=== PATIENT | female | born 1960 | race Asian ===

== ENCOUNTER 2021-02-20 08:25 | Outpatient (REF) | payer OTHER, SELFPAY ==
[2021-02-20 11:09] LABS: MANUAL DIFF FLAG NO
[2021-02-20 11:14] LABS: Basophils Absolute Auto 0.1 X10*3/uL (0.0-0.2); Basophils Percent Auto 1.9 % (0-2); Eosinophils Absolute Auto 0.2 X10*3/uL (0.0-0.4); Eosinophils Percent Auto 4.2 % (0-4); Hematocrit 34.2 % (37-47); Hemoglobin 10.7 g/dl (12.0-16.0); Imm Gran Abs Auto 0.02 X10*3/uL (0.00-0.03); Imm Gran Pct Auto 0.4 % (0.0-0.4); Lymphocytes Absolute Auto 1.7 X10*3/uL (1.2-4.9); Lymphocytes Percent Auto 31.7 % (20-40); Mean Corpuscular HGB Conc 31.3 g/dl (31.0-35.0); Mean Corpuscular Hemoglobin 21.5 pg (27.0-33.0); Mean Corpuscular Volume 68.7 fL (80-98); Mean Platelet Volume 10.4 fL (9.4-12.3); Monocytes Absolute Auto 0.5 X10*3/uL (0.1-1.2); Neutrophils Absolute Auto 2.7 X10*3/uL (2.0-8.3); Neutrophils Percent Auto 52.8 % (45-73); Platelet Count 301 X10*3/uL (160-400); Red Blood Count 4.98 X10*6/uL (4.20-5.50); Red Cell Distribution Width 16.5 % (11.0-16.0); White Blood Count 5.2 X10*3/uL (4.8-10.8)
[2021-02-20 11:33] LABS: Alanine Aminotransferase 23 U/L (0-31); Anion Gap 10 (12-20); Aspartate Amino Transferase 25 U/L (5-31); Blood Urea Nitrogen 17 mg/dL (9-16); Calcium 9.5 mg/dL (8.4-10.2); Carbon Dioxide 27 mmol/L (22-29); Chloride 108 mmol/L (96-108); Cholesterol 181 mg/dL; Estimated Glomerular Filt Rate > 60; Glucose Fasting 96 mg/dL (60-99); HDL Cholesterol 52 mg/dL; LDL Cholesterol Calculated 107 mg/dl; Potassium 3.8 mmol/L (3.3-5.1); Sodium 141 mmol/L (135-145); Triglycerides 110 mg/dL
[2021-02-20 11:45] LABS: TSH reflex Free T4 1.07 uIU/mL (0.32-4.0); Vitamin D 25-OH Total 24.3 ng/mL (>30)
== END 2021-02-20 08:26 | disposition home or self-care (01) ==
LOC: HO.HMGCLDS 08:25
PROVIDERS: PCP Internal Medicine; Visit Provider Internal Medicine
DX: Z00.00 Encounter for general adult medical examination without abnormal findings (principal); M81.0 Age-related osteoporosis without current pathological fracture; R73.01 Impaired fasting glucose; I10 Essential (primary) hypertension; R68.89 Other general symptoms and signs; Z78.0 Asymptomatic menopausal state
CPT/HCPCS: 36415; 80048; 80061; 82306; 84443; 84450; 84460; 85025

== ENCOUNTER 2021-06-12 08:52 | Outpatient (REF) | payer OTHER, SELFPAY ==
[2021-06-12 11:04] LABS: MANUAL DIFF FLAG NO
[2021-06-12 11:14] LABS: Basophils Absolute Auto 0.1 X10*3/uL (0.0-0.2); Basophils Percent Auto 1.4 % (0-2); Eosinophils Absolute Auto 0.2 X10*3/uL (0.0-0.4); Eosinophils Percent Auto 3.7 % (0-4); Hematocrit 32.9 % (37.0-47.0); Hemoglobin 10.3 g/dl (12.0-16.0); Imm Gran Abs Auto 0.02 X10*3/uL (0.00-0.03); Imm Gran Pct Auto 0.4 % (0.0-0.4); Lymphocytes Absolute Auto 1.4 X10*3/uL (1.2-4.9); Mean Corpuscular HGB Conc 31.3 g/dl (31.0-35.0); Mean Corpuscular Hemoglobin 21.9 pg (27.0-33.0); Mean Platelet Volume 9.9 fL (9.4-12.3); Monocytes Absolute Auto 0.4 X10*3/uL (0.1-1.2); Monocytes Percent Auto 7.2 % (2-11); Neutrophils Absolute Auto 3.1 x10*3/uL (2.0-8.3); Neutrophils Percent Auto 59.3 % (45-73); Platelet Count 275 X10*3/uL (160-400); Red Cell Distribution Width 16.2 % (11.0-16.0); White Blood Count 5.1 X10*3/uL (4.8-10.8)
[2021-06-12 11:30] LABS: Unsaturated Iron Binding 112 ug/dL
[2021-06-12 11:35] LABS: Iron 153 mcg/dL (30-160); Percent Iron Saturation 58 % (15-50); Total Iron Binding Capacity 265 mcg/dL (228-428)
[2021-06-12 11:52] LABS: Vitamin D 25-OH Total 72.3 ng/mL (>30)
== END 2021-06-12 08:53 | disposition home or self-care (01) ==
LOC: HO.HMGCLDS 08:52
PROVIDERS: PCP Internal Medicine; Visit Provider Internal Medicine
DX: D50.9 Iron deficiency anemia, unspecified (principal); E55.9 Vitamin D deficiency, unspecified; M81.0 Age-related osteoporosis without current pathological fracture; Z78.0 Asymptomatic menopausal state
CPT/HCPCS: 36415; 82306; 83540; 85025

== ENCOUNTER 2022-01-18 10:43 | Outpatient (REF) | payer OTHER, SELFPAY ==
[2022-01-18 14:14] LABS: MANUAL DIFF FLAG NO
[2022-01-18 14:18] LABS: Basophils Absolute Auto 0.1 X10*3/uL (0.0-0.2); Basophils Percent Auto 1.9 % (0-2); Eosinophils Absolute Auto 0.2 X10*3/uL (0.0-0.4); Eosinophils Percent Auto 4.8 % (0-4); Hematocrit 33.9 % (37.0-47.0); Hemoglobin 10.7 g/dl (12.0-16.0); Imm Gran Abs Auto 0.01 X10*3/uL (0.00-0.03); Imm Gran Pct Auto 0.2 % (0.0-0.4); Lymphocytes Absolute Auto 1.4 X10*3/uL (1.2-4.9); Mean Corpuscular HGB Conc 31.6 g/dl (31.0-35.0); Mean Corpuscular Hemoglobin 21.8 pg (27.0-33.0); Monocytes Absolute Auto 0.4 X10*3/uL (0.1-1.2); Monocytes Percent Auto 7.5 % (2-11); Neutrophils Absolute Auto 2.7 x10*3/uL (2.0-8.3); Neutrophils Percent Auto 55.6 % (45-73); Platelet Count 284 X10*3/uL (160-400); Red Blood Count 4.91 X10*6/uL (4.20-5.50); Red Cell Distribution Width 16.3 % (11.0-16.0); White Blood Count 4.8 X10*3/uL (4.8-10.8)
[2022-01-18 14:42] LABS: Iron 128 mcg/dL (30-160); Percent Iron Saturation 46 % (15-50); Total Iron Binding Capacity 280 mcg/dL (228-428); Unsaturated Iron Binding 152 ug/dL
[2022-01-18 14:50] LABS: Vitamin D 25-OH Total 43.4 ng/mL (>30)
[2022-01-18 15:14] LABS: Folate 16.2 ng/mL (> or = 4.0); Vitamin B12 325 pg/mL (200-900)
== END 2022-01-18 10:44 | disposition home or self-care (01) ==
LOC: HO.HMGCLDS 10:43
PROVIDERS: PCP Internal Medicine; Visit Provider Internal Medicine
DX: D50.9 Iron deficiency anemia, unspecified (principal); D56.3 Thalassemia minor; E55.9 Vitamin D deficiency, unspecified; N95.9 Unspecified menopausal and perimenopausal disorder
CPT/HCPCS: 36415; 82306; 82607; 82746; 83540; 85025

== ENCOUNTER 2022-10-29 09:26 | Outpatient (REF) | payer OTHER, SELFPAY ==
[2022-10-29 11:15] LABS: MANUAL DIFF FLAG NO
[2022-10-29 11:17] LABS: Basophils Absolute Auto 0.1 X10*3/uL (0.0-0.2); Basophils Percent Auto 1.7 % (0-2); Eosinophils Absolute Auto 0.2 X10*3/uL (0.0-0.4); Eosinophils Percent Auto 3.8 % (0-4); Hematocrit 33.1 % (37.0-47.0); Hemoglobin 10.4 g/dl (12.0-16.0); Imm Gran Abs Auto 0.02 X10*3/uL (0.00-0.03); Imm Gran Pct Auto 0.4 % (0.0-0.4); Lymphocytes Absolute Auto 1.4 X10*3/uL (1.2-4.9); Lymphocytes Percent Auto 29.3 % (20-40); Mean Corpuscular HGB Conc 31.4 g/dl (31.0-35.0); Mean Corpuscular Hemoglobin 21.4 pg (27.0-33.0); Mean Corpuscular Volume 68.2 fL (80.0-98.0); Monocytes Absolute Auto 0.4 X10*3/uL (0.1-1.2); Monocytes Percent Auto 7.6 % (2-11); Neutrophils Absolute Auto 2.7 x10*3/uL (2.0-8.3); Neutrophils Percent Auto 57.2 % (45-73); Platelet Count 298 X10*3/uL (160-400); Red Blood Count 4.85 X10*6/uL (4.20-5.50); Red Cell Distribution Width 15.9 % (11.0-16.0); White Blood Count 4.8 X10*3/uL (4.8-10.8)
[2022-10-29 11:57] LABS: Erythrocyte Sedimentation Rate 14 MM/HR (0-20)
[2022-10-29 12:27] LABS: Alanine Aminotransferase 20 U/L (0-31); Albumin Level 4.2 g/dL (3.5-5.0); Alkaline Phosphatase 56 U/L (39-117); Anion Gap 14 (12-20); Aspartate Amino Transferase 23 U/L (5-31); Bilirubin Total 0.9 mg/dL (0.0-1.0); Blood Urea Nitrogen 18 mg/dL (9-16); Calcium 9.7 mg/dL (8.4-10.2); Carbon Dioxide 26 mmol/L (22-29); Chloride 108 mmol/L (96-108); Estimated Glomerular Filt Rate > 60; Glucose Random 96 mg/dL (60-115); Potassium 3.9 mmol/L (3.3-5.1); Sodium 144 mmol/L (135-145); Total Protein 7.2 g/dL (6.5-8.0)
[2022-11-01 15:09] LABS: Anti Nuclear Antibody Screen NEGATIVE (NEGATIVE)
== END 2022-10-29 09:27 | disposition home or self-care (01) ==
LOC: HO.HMGCLDS 09:26
PROVIDERS: PCP Internal Medicine; Visit Provider Physician Assistant
DX: L30.9 Dermatitis, unspecified (principal)
CPT/HCPCS: 36415; 80053; 85025; 85652; 86038

== ENCOUNTER 2023-01-25 08:06 | Outpatient (AMB) | payer OTHER, SELFPAY ==
--- NOTE | 2023-01-25 08:19 | A.OFFPC_ITS ---
Vital Signs 01/25/23 08:24 Height 4 ft 11 in Weight 111 lb 2 oz BMI 22.4 BP 120/80 Blood Pressure Location Lt brachial Position Sitting Pulse 72 Pulse Oximetry (%) 99 Oxygen Delivery Method Room Air Intake Visit Reasons: PE Intake Note: patient is here today for PE Allergies Penicillins [PENICILLINS] Allergy (Unknown, Verified 01/30/23 13:44) UNKNOWN citrus Allergy (Mild, Uncoded 01/30/23 13:44) Blister on lips Medication List - Last Reconciled 01/25/23 by Martine Lopez MD multivitamin 1 tab PO DAILY Tobacco use date assessed: 01/25/23 Dental Screening Dental Screen Date: 01/25/23 Did you have a dental visit in the last 12 months?: Yes Did you have a dental problem in the last 6 months where you did not have access to dental care?: No Was dental information given to patient?: Patient has dentist HPI PE HPI Details 62-year-old lady here today for physical exam. She is up-to-date with her cervical cancer screening done at [facility], with negative Pap, last mammogram was done at [facility] as well in 2019 with no mammographic evidence of malignancy noted . Up-to-date with her screening colonoscopy done by Dr. 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 Has osteoporosis, with last bone density scan done in 2016 she, previously on alendronate. No history of fractures. Complains of rash pruritic lesions around her lip whenever she eats anything spicy or sour. [facility] Medical History (Updated 01/30/23 @ 14:39 by Martine Lopez MD) Refused influenza vaccine COVID-19 vaccine dose declined Food allergic skin reaction Annual visit for general adult medical examination with abnormal findings Vitamin D deficiency Microcytic hypochromic anemia Beta thalassemia minor Impaired fasting glucose Osteoporosis Surgical History History of colonoscopy History of hemorrhoidectomy History of section Family History Father No problems noted. Mother No problems noted. Brother Liver disease Brother No problems noted. Brother No problems noted. Sister No problems noted. Sister No problems noted. Son No problems noted. Social History Housing: House Patient Tobacco Use Status: Never used Tobacco e-Cigarette/Vaping Use: Never Used Current occupational status: employed Cognitive needs: No Hearing needs: No Vision needs: No Questionnaire PHQ-9 Over the last 2 weeks, how often have you been bothered by any of the following problems? 1. Little interest or pleasure in doing things: not at all 2. Feeling down, depressed, or hopeless: not at all 3. Trouble falling or staying asleep, or sleeping too much: several days 4. Feeling tired or having little energy: not at all 5. Poor appetite or overeating: not at all 6. Feeling bad about yourself - or that you are a failure or have let yourself or your family down: not at all 7. Trouble concentrating on things, such as reading the newspaper or watching television: not at all 8. Moving or speaking so slowly that other people could have noticed. Or the opposite - being so fidgety or restless that you have been moving around a lot more than usual: not at all 9. Thoughts that you would be better off or of hurting yourself in some way: not at all Total score: 1 Depression Screening Interpretation: Negative 57973 - PHQ-9 Billing: Yes Source: Developed by Drs. Helder Bowen, Rosario Azul, Fritz Seo and colleagues, with an educational tyron from [employer]. Thrive Questionnaire Date Thrive assessed: 01/25/23 I am a: Patient What is your living situation today?: I have a steady place to live Within the past 12 months, did the food you bought not last and you didn't have the money to get more?: Never true Within the past 12 months, did you worry whether your food would run out before you got money to buy more?: Never true Do you have trouble paying for medicines?: No Do you have trouble getting transportation to medical appointments?: No Do you have trouble paying your heating and electricity bill?: No Do you have trouble taking care of your child, family member or friend?: No Do you have trouble with day-to-day activities such as bathing, preparing meals, shopping, managing finances, etc.?: No Are you currently unemployed and looking for a job?: No Are you interested in more education?: Yes AUDIT C Alcohol Use Questionnaire (AUDIT-C) 1. How often do you have a drink containing alcohol?: Never Total Score: 0 RUFINO-7 AMB Questionnaire RUFINO-7 Date RUFINO - 7 assessed: 01/25/23 Feeling nervous, anxious, or on edge: 0 = Not at all Not being able to stop or control worryin = Not at all Worrying too much about different things: 0 = Not at all Trouble relaxin = Several days Being so restless that it is hard to sit still: 0 = Not at all Becoming easily annoyed or irritable: 0 = Not at all Feeling afraid as if something awful might happen: 0 = Not at all Total RUFINO-7 score (0-4 normal; 5-9 mild; 10-14 moderate; 15-21 severe): 1 Source: Developed by Drs. Helder Bowen, Rosario Azul, Fritz Seo and colleagues, with an educational tyron from [employer]. RUFINO-7 Assessment Billing RUFINO-7 Assessment Tool: RUFINO-7 Assessment 74983 Review of Systems Const Reports no additional complaints Eyes Denies change in vision ENT Reports no additional complaints Card Denies chest pain, Denies irregular heart rhythm, Denies lightheadedness and Denies dyspnea Resp Denies cough and Denies dyspnea GI Reports no additional complaints Reports no additional complaints Musc Reports no additional complaints and Reports as per HPI Skin/Breast Reports as per HPI, Denies breast pain and Denies breast mass Neuro Reports no additional complaints Psych Denies anxiety and Denies depression Endo Reports no additional complaints Yonny/Lymph Denies easy bleeding and Denies easy bruising Aller/Immun Reports no additional complaints Physical exam (Primary Care) Vital Signs: Last Vital Signs Pulse 72 01/25/23 08:24 BP 120/80 01/25/23 08:24 Pulse Ox 99 01/25/23 08:24 Oxygen Delivery Method Room Air 01/25/23 08:24 BMI result Body Mass Index 22.4 Tobacco/Smoking Status: Tobacco use Status Tobacco use date assessed 01/25/23 01/25/23 08:30 Patient Tobacco Use Status Never used Tobacco 01/25/23 08:20 e-Cigarette/Vaping Use Never Used 01/25/23 08:20 PHQ-9: PHQ-9 Score PHQ-9: Total score 1 01/25/23 09:32 Depression Screening Interpretation: Negative Thrive Assessment: Date of Thrive Assessment Date Thrive assessed 01/25/23 01/25/23 08:39 Const Other: Alert oriented x3, no acute distress Orientation/consciousness: patient oriented x3 HENMT Head: Yes atraumatic Ears: hearing grossly normal bilaterally, TM's normal bilaterally and EAC's normal General nose exam: Normal external nose present and No nasal discharge present Face and sinus: Yes face symmetric Mouth: Normal oral and palatal mucosa present, tongue normal and moist mucous membranes Eyes General: appearance normal, both eyes and all related structures Neck Neck: Yes full ROM, Yes no lymphadenopathy and Yes supple Thyroid: Thyroid normal Chest Chest palpation & inspection: normal inspection of the chest Breast/axilla palpation: normal palpation of the breasts Resp Auscultation: clear to auscultation bilaterally Cardio Other: S1-S2 present regular rate and rhythm GI Other: Normal bowel sounds, soft, nontender, no mass palpated General: Yes no CVA tenderness Back/Spine/Pelvis Back: no CVA tenderness and No back tenderness Skin General skin exam: no rashes or lesions noted Neuro General: patient oriented x3, gait normal, moves all extremities, Normal light touch and pain sensation, no focal motor deficits and CN's II-XI intact bilaterally Extrem General: Yes normal to inspection, Yes full ROM, Yes capillary refill normal, Yes no joint enlargement, Yes no clubbing, cyanosis or edema and Yes normal gait Psych Appearance: grossly normal Mental Status: mental status grossly normal Speech and movement: Normal speech and movement present Affect: normal affect Attitude: cooperative Thought process: Normal thought process present Assessment and Plan Assessment & Plan (1) Annual visit for general adult medical examination with abnormal findings: Code(s): Z00.01 - Encounter for general adult medical examination with abnormal findings Plan: Will check appropriate labs. Continue regular dental visit every 6 months and regular eye exams, at least every 2 years. Take adequate calcium in diet and vitamin-D 3 at 2000 IU per cap once a day, in addition to weight-bearing ex ercises to help maintain good muscle tone and weight control, bone density scan ordered. Instructed to do self-breast exam, and recommended to get yearly mammogram, overdue, mammogram ordered. She has had 2 COVID vaccination does not want to get the boosters anymore, declines flu vaccine, up-to-date with her tetanus diphtheria booster, up-to-date with her screening colonoscopy done 2014, due again a 2024 (2) Beta thalassemia minor: Code(s): D56.3 - Thalassemia minor Plan: Currently symptomatic, prescription sent for folic acid to take once a day (3) Osteoporosis: Comment: Left femoral neck and lumbar spine seen on bone density scan 11/25/2015 Code(s): M81.0 - Age-related osteoporosis without current pathological fracture Qualifiers: Osteoporosis type: age-related Presence of current pathological fracture: without current pathological fracture Qualified Code(s): M81.0 - Age- related osteoporosis without current pathological fracture Plan: Repeat bone density scan ordered (4) Food allergic skin reaction: Code(s): L27.2 - Dermatitis due to ingested food Plan: [facility] [place] [facility] further evaluation and management (5) COVID-19 vaccine dose declined: Code(s): Z28.21 - Immunization not carried out because of patient refusal (6) Refused influenza vaccine: Code(s): Z28.21 - Immunization not carried out because of patient refusal Orders: Orders Lipid Panel 01/25/23 D50.9 - Iron deficiency anemia, unspecified, D56.3 - Thalassemia minor, E55.9 - Vitamin D deficiency, unspecified, M81.0 - Age- related osteoporosis without current pathological fracture, Z00.01 - Encounter for general adult medical examination with abnormal findings MM screening mammo BI 01/25/23 Z00.01 - Encounter for general adult medical examination with abnormal findings, Z12.31 - Encounter for screening mammogram for malignant neoplasm of breast XR DEXA axial skeleton 01/25/23 M81.0 - Age-related osteoporosis without current pathological fracture, Z78.0 - Asymptomatic menopausal state Complete Blood Count Auto Diff 01/25/23 D50.9 - Iron deficiency anemia, unspecified, D56.3 - Thalassemia minor, E55.9 - Vitamin D deficiency, unspecified, M81.0 - Age-related osteoporosis without current pathological fracture, Z00.01 - Encounter for general adult medical examination with abnormal findings TSH reflex Free T4 01/25/23 D50.9 - Iron deficiency anemia, unspecified, D56.3 - Thalassemia minor, E55.9 - Vitamin D deficiency, unspecified, M81.0 - Age- related osteoporosis without current pathological fracture, Z00.01 - Encounter for general adult medical examination with abnormal findings Vitamin D 25-OH Total 01/25/23 D50.9 - Iron deficiency anemia, unspecified, D56.3 - Thalassemia minor, E55.9 - Vitamin D deficiency, unspecified, M81.0 - Age-related osteoporosis without current pathological fracture, Z00.01 - Encounter for general adult medical examination with abnormal findings Referrals Allergy & Immunology Referral L27.2 - Dermatitis due to ingested food Medications: New folic acid 1 mg PO DAILY 90 tabs 1RF Coding Level of Care Code Est Pt Prev Care 40-64y(55609) Diagnoses Annual visit for general adult medical examination with abnormal findings Z00.01 Beta thalassemia minor D56.3 Age-related osteoporosis without current pathological fracture M81.0 Osteoporosis type: age-related Presence of current pathological fracture: without current pathological fracture Food allergic skin reaction L27.2 COVID-19 vaccine dose declined Z28.21 Refused influenza vaccine Z28.21 Additional Codes RUFINO-7 Assessment Billing - RUFINO-7 Assessment Tool: RUFINO-7 Assessment 24339 ([id number])
[2023-01-25 08:24] VITALS: BP 120/80; PULSE 72; O2SAT 99; BMI 22.4
== END 2023-01-25 09:53 | disposition home or self-care (01) ==
PROVIDERS: Visit Provider Internal Medicine
DX: Z00.01 Encounter for general adult medical examination with abnormal findings (principal); D56.3 Thalassemia minor; M81.0 Age-related osteoporosis without current pathological fracture; L27.2 Dermatitis due to ingested food; Z28.21 Immunization not carried out because of patient refusal
CPT/HCPCS: 99396

== ENCOUNTER 2023-02-23 08:33 | Outpatient (AMB) | payer OTHER, SELFPAY ==
[2023-02-23 08:33] VITALS: BP 140/80; PULSE 82; TEMP 36.2; O2SAT 98; BMI 22.2
--- NOTE | 2023-02-23 08:33 | AM.OFFWIN_ITS ---
Intake Vital Signs 02/23/23 08:33 Height 4 ft 11 in Weight 110 lb BMI 22.2 BP 140/80 H Blood Pressure Location Lt brachial Position Sitting Pulse 82 Pulse Source Pulse Oximeter Temp 97.2 F Temp Source Temporal Artery Scan Pulse Oximetry (%) 98 Intake Visit Reasons: EP Sore Throat [phone] Intake Note: pt is here for c/o sore throat Patient Tobacco Use Status: Never used Tobacco Allergies Penicillins [PENICILLINS] Allergy (Unknown, Verified 02/23/23 08:34) UNKNOWN citrus Allergy (Mild, Uncoded 01/30/23 13:44) Blister on lips Do you need a note to return to daycare/school/sports/work: Yes HPI EP Sore Throat [phone] HPI Details 62-year-[facility] of [facility] throat. No other symptoms. Denies known exposure to sick contacts. Denies any fever or chills. Has been able to eat and drink. [facility] Medical History Refused influenza vaccine COVID-19 vaccine dose declined Food allergic skin reaction Annual visit for general adult medical examination with abnormal findings Vitamin D deficiency Microcytic hypochromic anemia Beta thalassemia minor Impaired fasting glucose Osteoporosis Surgical History History of colonoscopy History of hemorrhoidectomy History of section Family History Father No problems noted. Mother No problems noted. Brother Liver disease Brother No problems noted. Brother No problems noted. Sister No problems noted. Sister No problems noted. Son No problems noted. Social History Housing: House Patient Tobacco Use Status: Never used Tobacco e-Cigarette/Vaping Use: Never Used Current occupational status: employed Cognitive needs: No Hearing needs: No Vision needs: No Review of Systems Const All systems reviewed & are unremarkable except as noted in HPI and below Physical Exam Vital Signs: Last Vital Signs Temp 97.2 F 02/23/23 08:33 Pulse 82 02/23/23 08:33 BP 140/80 H 1005/23 08:33 Pulse Ox 98 02/23/23 08:33 BMI result Body Mass Index 22.2 Const General: cooperative, healthy appearing, comfortable and no acute distress HEENT Head: Yes normal to inspection Ears: hearing grossly normal bilaterally Face and sinus: Yes normal facial exam Mouth: Normal oral and palatal mucosa present and moist mucous membranes Throat: Yes tonsils normal, Yes uvula midline and Yes posterior oropharynx abnormal (Mild erythema) Neck Neck: Yes no lymphadenopathy Resp Effort & Inspection: normal respiratory effort and able to speak in complete sentences Auscultation: clear to auscultation bilaterally Cardio Jugular venous distension: no JVD Palpation: normal PMI Rate: regular rate Rhythm: regular rhythm Skin General skin exam: no rashes or lesions noted Extrem General: Yes capillary refill normal and Yes no clubbing, cyanosis or edema Psych Appearance: grossly normal Mental Status: mental status grossly normal Speech and movement: Normal speech and movement present Results AMB Rapid Strep AMB Rapid Strep Negative Last Edit by FÁTIMA Ware on 02/23/23 08:47 Assessment & Plan Assessment & Plan (1) Acute viral pharyngitis: Code(s): J02.9 - Acute pharyngitis, unspecified Plan: Symptoms consistent with a viral pharyngitis. Rapid strep in the office was negative. No other symptoms at this time. Advised patient conservative measures, including increased hydration, throat lozenges, saltwater gargles, and advancing diet as tolerated. If she does not improve with time and conservativ e measures, or if new symptoms develop, she can return to the clinic for evaluation. She verbalizes understanding and agrees to plan. Work note provided. Orders: Orders AMB Rapid Strep Screen Today Z13.9 - Encounter for screening, unspecified Coding Level of Care Code Est Pt Level 3 (96731) Diagnoses Acute viral pharyngitis J02.9
== END 2023-02-23 09:21 | disposition home or self-care (01) ==
PROVIDERS: PCP Internal Medicine; Visit Provider Nurse Practitioner Family
DX: J02.9 Acute pharyngitis, unspecified (principal)
CPT/HCPCS: 87880; 99213

== ENCOUNTER 2023-08-09 11:03 | Outpatient (AMB) | payer OTHER, SELFPAY ==
--- NOTE | 2023-08-09 11:27 | A.OFFPC_ITS ---
Vital Signs 08/09/23 11:28 Height 4 ft 11 in Weight 108 lb BMI 21.8 BP 120/82 Blood Pressure Location Rt brachial Position Sitting Pulse 88 Pulse Source Pulse Oximeter Pulse Oximetry (%) 99 Oxygen Delivery Method Room Air Intake Visit Reasons: request a referral for derm Intake Note: Pt is here today to request a referral for derm Allergies Penicillins [PENICILLINS] Allergy (Unknown, Verified 08/22/23 00:42) UNKNOWN citrus Allergy (Mild, Uncoded 08/22/23 00:42) Blister on lips Medication List - Last Reconciled 08/09/23 by Martine Lopez MD fluocinonide 0.05% 1 appl topical BID multivitamin 1 tab PO DAILY Tobacco use date assessed: 08/09/23 Dental Screening Dental Screen Date: 08/09/23 Did you have a dental visit in the last 12 months?: Yes Did you have a dental problem in the last 6 months where you did not have access to dental care?: No Was dental information given to patient?: Patient has dentist HPI request a referral for derm HPI Details 63-year-old lady with history of impaire d fasting glucose, osteoporosis in lumbar spine and left femoral neck, here today for follow-up. She initially was diagnosed to have osteoporosis by her previous doctor but did not want to start any medication, but repeat bone density scan done earlier this year showed worsening osteoporosis in her lumbar spine. No history of fractures. She is also complaining of persistent burning rash on vermilion border of lips, initially was advised to apply CeraVe cream by Dr. Michele and then later prescribed fluocinonide ointment which she states has not really been helping. She has been applying Pradip Papaw movement on affected area which affords only temporary relief would like a referral to a different dermatology [facility] Medical History (Updated 09/08/23 @ 08:32 by Martine Lopez MD) Rash on lips Refused influenza vaccine COVID-19 vaccine dose declined Food allergic skin reaction Annual visit for general adult medical examination with abnormal findings Vitamin D deficiency Microcytic hypochromic anemia Beta thalassemia minor Impaired fasting glucose Osteoporosis Surgical History History of colonoscopy History of hemorrhoidectomy History of section Family History Father No problems noted. Mother No problems noted. Brother Liver disease Brother No problems noted. Brother No problems noted. Sister No problems noted. Sister No problems noted. Son No problems noted. Social History Housing: House Patient Tobacco Use Status: Never used Tobacco e-Cigarette/Vaping Use: Never Used Current occupational status: employed Cognitive needs: No Hearing needs: No Vision needs: No Questionnaire PHQ-9 Over the last 2 weeks, how often have you been bothered by any of the following problems? Depression Screening Interpretation: Negative Depression Screening Done: Yes 23238 - PHQ-9 Billing: Patient declined-do not bill Source: Developed by Drs. Helder Bowen, Rosario Azul, Fritz Seo and colleagues, with an educational tyron from [employer]. Thrive Questionnaire Date Thrive assessed: 08/09/23 What is your living situation today?: I choose not to answer this question Within the past 12 months, did the food you bought not last and you didn't have the money to get more?: I choose not to answer this question Within the past 12 months, did you worry whether your food would run out before you got money to buy more?: I choose not to answer this question Do you have trouble paying for medicines?: I choose not to answer this question Do you have trouble getting transportation to medical appointments?: I choose not to answer this question Do you have trouble paying your heating and electricity bill?: I choose not to answer this question Do you have trouble taking care of your child, family member or friend?: I choose not to answer this question Do you have trouble with day-to-day activities such as bathing, preparing meals, shopping, managing finances, etc.?: I choose not to answer this question Are you currently unemployed and looking for a job?: I choose not to answer this question Are you interested in more education?: I choose not to answer this question THRIVE Score: 0 AUDIT C Alcohol Use Questionnaire (AUDIT-C) 1. How often do you have a drink containing alcohol?: Never Total Score: 0 RUFINO-7 AMB Questionnaire RUFINO-7 Date RUFINO - 7 assessed: 08/09/23 Source: Developed by Drs. Helder Bowen, Rosario Azul, Fritz Seo and colleagues, with an educational tyron from [employer]. RUFINO-7 Assessment Billing RUFINO-7 Assessment Tool: pt declined-do not bill Review of Systems Const Reports no additional complaints Eyes Denies change in vision ENT Reports no additional complaints Card Denies chest pain, Denies irregular heart rhythm, Denies lightheadedness and Denies dyspnea Resp Denies cough and Denies dyspnea GI Reports no additional complaints Reports no additional complaints Musc Reports no additional complaints Skin/Breast Denies breast pain and Denies breast mass Neuro Reports no additional complaints Endo Reports no additional complaints Yonny/Lymph Denies easy bleeding and Denies easy bruising Aller/Immun Reports no additional complaints Physical exam (Primary Care) Vital Signs: Last Vital Signs Pulse 88 08/09/23 11:28 BP 120/82 08/09/23 11:28 Pulse Ox 99 08/09/23 11:28 Oxygen Delivery Method Room Air 08/09/23 11:28 BMI result Body Mass Index 21.8 Tobacco/Smoking Status: Tobacco use Status Tobacco use date assessed 08/09/23 08/09/23 11:38 Patient Tobacco Use Status Never used Tobacco 08/09/23 11:33 e-Cigarette/Vaping Use Never Used 08/09/23 11:33 Depression Screening Interpretation: Negative Thrive Assessment: Date of Thrive Assessment Date Thrive assessed 08/09/23 08/09/23 11:38 Const Other: Alert oriented x3, no acute distress Orientation/consciousness: patient oriented x3 HENMT Head: Yes atraumatic Ears: hearing grossly normal bilaterally, TM's normal bilaterally and EAC's normal General nose exam: Normal external nose present and No nasal discharge present Face and sinus: Yes face symmetric Mouth: Normal oral and palatal mucosa present and moist mucous membranes Eyes General: appearance normal, both eyes and all related structures Neck Neck: Yes full ROM, Yes no lymphadenopathy and Yes supple Thyroid: Thyroid normal Resp Auscultation: clear to auscultation bilaterally Cardio Other: S1-S2 present regular rate and rhythm GI Other: Normal bowel sounds, soft, nontender, no mass palpated General: Yes no CVA tenderness Back/Spine/Pelvis Back: no CVA tenderness and No back tenderness Skin Other: rough slightly rfaised erythematous rash on yehuda border of lip Neuro General: patient oriented x3, gait normal, moves all extremities, Normal light touch and pain sensation, no focal motor deficits and CN's II-XI intact bilaterally Extrem General: Yes normal to inspection, Yes full ROM, Yes capillary refill normal, Yes no joint enlargement, Yes no clubbing, cyanosis or edema and Yes normal gait Assessment and Plan Assessment & Plan (1) Impaired fasting glucose: Code(s): R73.01 - Impaired fasting glucose Plan: Your fasting blood sugar in the past was elevated above 100 mg/dL. Impaired glucose metabolism O2 increase his risk for developing diabetes mellitus type 2, as well as heart attack and stroke later on. Lifestyle changes at just weight loss, healthy eating habits, and regular exercise are important, and can prevent the progression to diabetes comprehensive metabolic panel (2) Osteoporosis: Comment: Left femoral neck and lumbar spine seen on bone density scan 11/25/2015 Code(s): M81.0 - Age-related osteoporosis without current pathological fracture Qualifiers: Osteoporosis type: age-related Presence of current pathological fracture: without current pathological fracture Qualified Code(s): M81.0 - Age- related osteoporosis without current pathological fracture Plan: Will start on alendronate 70 mg per tablet to take once a week. Pt advised to upon waking up in am, take medication 30 minutes before first food/drink/med. and do not lay down for 1 hour after taking medication.. Discussed potential side effects with pt including but not limited to dysphagia, esophygitis and gastritis. Pt advised to stop medication and call office if developes any adverse side effects including dysphagia, esophygeal pain or abdominal pain. Ca and Vit D supplements if inadequate dietary intake. Recommend Ca 500mg tid with meals. Advised to take Ca at separate times because the body does not absorb more than 800 mgof calcium at a time. Repeat bone density scan ordered, patient encouraged to do regular weight-bearing exercise, continue taking vitamin D at least 2000 units daily and take adequate calcium from dietary sources. (3) Rash on lips: Code(s): K13.0 - Diseases of lips Plan: She has been seen by Dr. 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 She has been usingLucas Papaw ointment which affords only temporary relief. Would like a referral to a different tooth grinder Orders: Orders Lipid Panel 08/09/23 R73.01 - Impaired fasting glucose, M81.0 - Age-related osteoporosis without current pathological fracture XR DEXA axial skeleton 1 Year M81.0 - Age-related osteoporosis without current pathological fracture Comprehensive [place]. Panel Fast 08/09/23 R73.01 - Impaired fasting glucose, M81.0 - Age-related osteoporosis without current pathological fracture Vitamin B12 and Folate 08/09/23 R73.01 - Impaired fasting glucose, M81.0 - Age- related osteoporosis without current pathological fracture Vitamin D 25-OH Total 08/09/23 R73.01 - Impaired fasting glucose, M81.0 - Age- related osteoporosis without current pathological fracture Coding Level of Care Code Est Pt Level 4 (22204) Diagnoses Impaired fasting glucose R73.01 Age-related osteoporosis without current pathological fracture M81.0 Osteoporosis type: age-related Presence of current pathological fracture: without current pathological fracture Rash on lips K13.0
[2023-08-09 11:28] VITALS: BP 120/82; PULSE 88; O2SAT 99; BMI 21.8
== END 2023-08-09 13:15 | disposition home or self-care (01) ==
PROVIDERS: PCP Internal Medicine; Visit Provider Internal Medicine
DX: R73.01 Impaired fasting glucose (principal); M81.0 Age-related osteoporosis without current pathological fracture; K13.0 Diseases of lips
CPT/HCPCS: 99214

== ENCOUNTER 2023-08-19 10:03 | Outpatient (AMB) | payer OTHER, SELFPAY ==
[2023-08-19 11:20] VITALS: BP 120/72; PULSE 77; TEMP 36.6; O2SAT 99
--- NOTE | 2023-08-19 11:20 | AM.OFFWIN_ITS ---
Intake Vital Signs 08/19/23 11:20 Height 4 ft 11 in BP 120/72 Blood Pressure Location Lt brachial Position Sitting Pulse 77 Pulse Source Pulse Oximeter Temp 97.8 F Temp Source Oral Pulse Oximetry (%) 99 Oxygen Delivery Method Room Air Intake Visit Reasons: Sore throat Intake Note: pt is here for a sore throat on and off for about a week no other sx Patient Tobacco Use Status: Never used Tobacco Allergies Penicillins [PENICILLINS] Allergy (Unknown, Verified 08/22/23 00:42) UNKNOWN citrus Allergy (Mild, Uncoded 08/22/23 00:42) Blister on lips HPI Sore throat HPI Details Patient is a 62-year-old female comes to the walk-in clinic complaining of sore throat today. She reports similar symptoms a week ago for only about a day or 2 with sore throat associated with a mild postnasal drip that felt sharp like a blade , and resolved soon after with allergy medication. She states that she had been out of work for a little while between the episodes, so she questions if she is developing an allergy due to her work environment. 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 No report of seasonal allergies, or covid testing. No reported underlying respiratory issues. No chest pain or pressure, shortness of breath, fever or chills, nausea vomiting or diarrhea, significant cough, headache or dizziness, sinus pressure, fast heart rate, loss of sense of taste or smell, myalgias or malaise, significant fatigue, itchy eyes, ear pain, or other significant associated symptoms. [facility] Medical History (Updated 09/08/23 @ 08:32 by Martine Lopez MD) Rash on lips Refused influenza vaccine COVID-19 vaccine dose declined Food allergic skin reaction Annual visit for general adult medical examination with abnormal findings Vitamin D deficiency Microcytic hypochromic anemia Beta thalassemia minor Impaired fasting glucose Osteoporosis Surgical History History of colonoscopy History of hemorrhoidectomy History of section Family History Father No problems noted. Mother No problems noted. Brother Liver disease Brother No problems noted. Brother No problems noted. Sister No problems noted. Sister No problems noted. Son No problems noted. Social History Housing: House Patient Tobacco Use Status: Never used Tobacco e-Cigarette/Vaping Use: Never Used Current occupational status: employed Cognitive needs: No Hearing needs: No Vision needs: No Review of Systems Const All systems reviewed & are unremarkable except as noted in HPI and below Physical Exam Vital Signs: Last Vital Signs Temp 97.8 F 08/19/23 11:20 Pulse 77 08/19/23 11:20 BP 120/72 08/19/23 11:20 Pulse Ox 99 08/19/23 11:20 Oxygen Delivery Method Room Air 08/19/23 11:20 Const General: cooperative, healthy appearing, comfortable, no acute distress, alert, awake, Physically active and well groomed; No diaphoretic, ill appearing, intoxicated appearing, poor hygiene or tired appearing Nutritional Appearance: average body habitus Orientation/consciousness: oriented to person Limitations: no limitations HEENT Head: Yes normal to inspection, Yes normocephalic and Yes atraumatic Ears: hearing grossly normal bilaterally, external ears normal and EAC's normal General nose exam: Normal external nose present, Abnormal mucous membranes and turbinates present and Nasal discharge present Face and sinus: Yes normal facial exam, Yes sinuses nontender and Yes face symmetric Mouth: Normal oral and palatal mucosa present, lip normal and tongue normal Throat: No peritonsillar mass, Yes postnasal drainage, No uvular edema and No cobblestoning Eyes General: appearance normal, both eyes and all related structures Neck Neck: Yes normal visual inspection, Yes full ROM, Yes no lymphadenopathy, Yes trachea midline, Yes supple and No anterior neck swelling Resp Effort & Inspection: normal respiratory effort, able to speak in complete sentences, no audible wheezes, no cough, no grunting, not labored, no nasal flaring, no retractions and symmetric chest movement Auscultation: clear to auscultation bilaterally, no crackles, no rales, no rhonchi, no wheezes, lung sounds not diminished and No rub present Cardio Palpation: normal PMI Rate: regular rate Rhythm: regular rhythm Heart sounds: S1 normal heart sound present and S2 normal heart sound present Skin Other: Good color, warm and dry Neuro General: oriented to person Psych Appearance: grossly normal Mental Status: mental status grossly normal Speech and movement: Normal speech and movement present Affect: normal affect Attitude: cooperative Thought process: Normal thought process present Insight: Good insight present (Psych) Judgement: Good judgement present (Psych) Results AMB Rapid Strep AMB Rapid Strep Negative Last Edit by Kateryna Beaulieu CMA on 08/19/23 11 :51 Results Reviewed Results Reviewed: Laboratory Last Values Strep Scn Rapid Clinic Negative 08/19/23 11:48 Negative Assessment & Plan Assessment & Plan (1) Pharyngitis: Code(s): J02.9 - Acute pharyngitis, unspecified Qualifiers: Pharyngitis/tonsillitis etiology: unspecified etiology Qualified Code(s): J02.9 - Acute pharyngitis, unspecified Plan: Patient is a 62-year-old female comes to the walk-in clinic complaining of sore throat that started up again today. She had similar symptoms a week ago for only about a day or so, with sore throat associated with a mild postnasal drip and resolved soon after with allergy medication. She states that she had been out of work for a little while between the episodes, so she questions if she has developing an allergy due to her work environment. 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 We discussed how this could be due to that, or seasonal or other allergy issue, and that taking an allergy medication might help with symptoms. She does have some visible fluid in the inner ears, and I think she has getting a postnasal drip that is causing her symptoms. So we discussed [id number] anti-inflammatory and Sudafed use for a few days to see if it resolves symptoms like it did the week before. She is also pending results for flu COVID and RSV testing. She knows to follow up if symptoms persist or worsen. Orders: Orders AMB Rapid Strep Screen 08/19/23 Z13.9 - Encounter for screening, unspecified SARS-CoV2/FLU/RSV 08/19/23 R05.9 - Cough, unspecified Coding Level of Care Code Est Pt Level 4 (03890) Diagnoses Pharyngitis, unspecified etiology J02.9 Pharyngitis/tonsillitis etiology: unspecified etiology
== END 2023-08-19 13:07 | disposition home or self-care (01) ==
PROVIDERS: PCP Internal Medicine; Visit Provider Physician Assistant Medical
DX: J02.9 Acute pharyngitis, unspecified (principal)
CPT/HCPCS: 87880; 99051; 99214

== ENCOUNTER 2023-08-19 11:54 | Outpatient (REF) | payer OTHER, SELFPAY ==
[2023-08-19 14:04] LABS: Alanine Aminotransferase 22 U/L (0-31); Albumin Level 4.2 g/dL (3.5-5.0); Alkaline Phosphatase 69 U/L (39-117); Anion Gap 12 (12-20); Aspartate Amino Transferase 26 U/L (5-31); Bilirubin Total 0.7 mg/dL (0.0-1.0); Blood Urea Nitrogen 14 mg/dL (9-16); Carbon Dioxide 25 mmol/L (22-29); Chloride 108 mmol/L (96-108); Cholesterol 196 mg/dL (<200); Estimated Glomerular Filt Rate > 60; Glucose Fasting 86 mg/dL (60-99); HDL Cholesterol 54 mg/dL (>40); LDL Cholesterol Calculated 112 mg/dL (<100); Potassium 3.8 mmol/L (3.3-5.1); Sodium 141 mmol/L (135-145); Total Protein 7.5 g/dL (6.5-8.0); Triglycerides 152 mg/dL (<150)
[2023-08-19 14:19] LABS: Vitamin D 25-OH Total 50.2 ng/mL (>30)
[2023-08-19 14:30] LABS: Folate 15.4 ng/mL (> or = 4.0); Vitamin B12 652 pg/mL (200-900)
[2023-08-19 14:43] LABS: Influenza A PCR NEGATIVE (Negative); Influenza B PCR NEGATIVE (Negative); Resp Syncy Virus RNA Qual PCR NEGATIVE (Negative); SARS COV2 PCR INHOUSE NEGATIVE (Negative)
== END 2023-08-19 11:55 | disposition home or self-care (01) ==
LOC: HO.HMGCLDS 11:54
PROVIDERS: Physician Assistant Medical; PCP Internal Medicine; Visit Provider Internal Medicine
DX: Z13.6 Encounter for screening for cardiovascular disorders (principal); R73.01 Impaired fasting glucose; M81.0 Age-related osteoporosis without current pathological fracture; R05.9 Cough, unspecified
CPT/HCPCS: 0241U; 36415; 80053; 80061; 82306; 82607; 82746

== ENCOUNTER 2023-11-24 08:33 | Outpatient (AMB) | payer OTHER, SELFPAY ==
--- NOTE | 2023-11-24 08:47 | A.OFFPC_ITS ---
Intake Visit Reasons: f/u allergy test and labs I phone [phone] Allergies Penicillins [PENICILLINS] Allergy (Unknown, Verified 11/24/23 10:15) UNKNOWN citrus Allergy (Mild, Uncoded 11/24/23 10:15) Blister on lips Medication List - Last Reconciled 11/24/23 by Martine Lopez MD alendronate 70 mg PO QWEEK 3 months fluocinonide 0.05% 1 appl topical BID PRN multivitamin 1 tab PO DAILY Tobacco use date assessed: 11/24/23 Dental Screening Dental Screen Date: 08/09/23 HPI f/u allergy test and labs I phone [phone] HPI Details 63-year-old lady here today for follow-u p. She has been having rec urrent rash, non itchy on vermilion border of lips. 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 She has been using otxc lip balm , CeraVe moisturizer, Cetaphil which has not been helping. She has been using Pradip Papaw moisturizer which has been helping. She states that she reacts to egg plant, and crabs. She has also been taking Claritin as needed. [facility] Medical History Rash on lips Refused influenza vaccine COVID-19 vaccine dose declined Food allergic skin reaction Annual visit for general adult medical examination with abnormal findings Vitamin D deficiency Microcytic hypochromic anemia Beta thalassemia minor Impaired fasting glucose Osteoporosis Surgical History History of colonoscopy History of hemorrhoidectomy History of section Family History Father No problems noted. Mother No problems noted. Brother Liver disease Brother No problems noted. Brother No problems noted. Sister No problems noted. Sister No problems noted. Son No problems noted. Social History Housing: House Patient Tobacco Use Status: Never used Tobacco e-Cigarette/Vaping Use: Never Used Current occupational status: employed Cognitive needs: No Hearing needs: No Vision needs: No Questionnaire Thrive Questionnaire Date Thrive assessed: 08/09/23 RUFINO-7 AMB Questionnaire RUFINO-7 Date RUFINO - 7 assessed: 08/09/23 Source: Developed by Drs. Helder Bowen, Rosario Azul, Fritz Seo and colleagues, with an educational tyron from [employer]. Review of Systems Const Reports no additional complaints ENT Reports no additional complaints Card Denies chest pain, Denies irregular heart rhythm, Denies lightheadedness and Denies dyspnea Resp Denies cough and Denies dyspnea GI Reports no additional complaints Reports no additional complaints Musc Reports no additional complaints Skin/Breast Reports as per HPI Neuro Reports no additional complaints Endo Reports no additional complaints Yonny/Lymph Denies easy bleeding and Denies easy bruising Aller/Immun Reports no additional complaints Physical exam (Primary Care) Tobacco/Smoking Status: Tobacco use Status Tobacco use date assessed 11/24/23 11/24/23 08:49 Patient Tobacco Use Status Never used Tobacco 11/24/23 08:49 e-Cigarette/Vaping Use Never Used 11/24/23 08:49 Thrive Assessment: Date of Thrive Assessment Date Thrive assessed 08/09/23 11/24/23 08:49 Telehealth Telehealth Telehealth Platform: [employer] Location of provider rendering services: practice address Location of patient: address on file Patient Identification confirmed using: Name, : Yes Telehealth method: video Patient verbally consented to treatment: Yes Patient verbally consented to billing insurance company: Yes Patient informed of any privacy concerns related to visit: Yes Minutes spent on Phone/Video with Pt.: 15 Assessment and Plan Assessment & Plan (1) Rash on lips: Code(s): K13.0 - Diseases of lips Plan: Likely eczema, continue using Pradip papaw ointment sparingly as needed. Avoidance of triggers recommended. Will start on montelukast 10 mg per tablet taken once a day in morning. See her back for follow-up in January for her physical exam Medications: New montelukast 10 mg PO DAILY 30 tabs 5RF Coding Level of Care Code Est Pt Level 4 (35292) Diagnoses Rash on lips K13.0
== END 2023-11-24 11:45 | disposition home or self-care (01) ==
LOC: HO.HMGC 08:34
PROVIDERS: PCP Internal Medicine; Visit Provider Internal Medicine
DX: K13.0 Diseases of lips (principal)
CPT/HCPCS: 99214

== ENCOUNTER 2024-02-05 13:33 | Outpatient (AMB) | payer OTHER, SELFPAY ==
[2024-02-05 13:42] VITALS: BP 128/70; PULSE 75; O2SAT 98; BMI 22.2
--- NOTE | 2024-02-05 13:42 | MHC.PC.OV ---
Vital Signs 02/05/24 13:42 Height 4 ft 11 in Weight 110 lb BMI 22.2 BP 128/70 Blood Pressure Location Lt brachial Position Sitting Pulse 75 Pulse Source Pulse Oximeter Pulse Oximetry (%) 98 Oxygen Delivery Method Room Air Intake Visit Reasons: PE Intake Note: Pt is here today for her PE: Last mammogram 07/13/23, colonoscopy 08/04/14 Allergies Penicillins [PENICILLINS] Allergy (Unknown, Verified 02/05/24 13:55) UNKNOWN citrus Allergy (Mild, Uncoded 02/05/24 13:55) Blister on lips Medication List - Last Reconciled 02/05/24 by Martine Lopez MD alendronate 70 mg PO QWEEK 3 months montelukast 10 mg PO DAILY multivitamin 1 tab PO DAILY Tobacco use date assessed: 02/05/24 Dental Screening Dental Screen Date: 02/05/24 Did you have a dental visit in the last 12 months?: Yes Did you have a dental problem in the last 6 months where you did not have access to dental care?: Yes Was dental information given to patient?: Patient has dentist HPI PE HPI Details 63-year-old lady with history of microcytic hypochromic anemia, has osteoporosis noted on bone density done earlier this year, currently on alendronate 70 mg once a week, has seasonal allergies currently on montelukast 10 mg daily, here today for physical exam. She goes to [facility] for routine Pap and pelvic exam, last Pap was done 07/01/2021 with came back negative for intraepithelial lesion or malignancy, atrophic mucosa with no HPV seen. Up-to-date with her screening mammogram done earlier this year. Screening colonoscopy done by Dr. Paniagua in 2014 with normal findings, repeat due next year. She has been feeling well with no complaints at present time. [facility] Medical History Rash on lips Refused influenza vaccine COVID-19 vaccine dose declined Food allergic skin reaction Annual visit for general adult medical examination with abnormal findings Vitamin D deficiency Microcytic hypochromic anemia Beta thalassemia minor Impaired fasting glucose Osteoporosis Surgical History History of colonoscopy History of hemorrhoidectomy History of section Family History Father No problems noted. Mother No problems noted. Brother Liver disease Brother No problems noted. Brother No problems noted. Sister No problems noted. Sister No problems noted. Son No problems noted. Social History Housing: House Patient Tobacco Use Status: Never used Tobacco e-Cigarette/Vaping Use: Never Used Current occupational status: employed Cognitive needs: No Hearing needs: No Vision needs: No Female Reproductive History Menstrual Menopause type: natural Date of last pap smear: 07/01/21 Other: Goes to [facility] for cervical cancer screening and pelvic exam as well as for her mammogram Questionnaire PHQ-9 Over the last 2 weeks, how often have you been bothered by any of the following problems? 1. Little interest or pleasure in doing things: not at all 2. Feeling down, depressed, or hopeless: not at all 3. Trouble falling or staying asleep, or sleeping too much: not at all 4. Feeling tired or having little energy: not at all 5. Poor appetite or overeating: not at all 6. Feeling bad about yourself - or that you are a failure or have let yourself or your family down: not at all 7. Trouble concentrating on things, such as reading the newspaper or watching television: not at all 8. Moving or speaking so slowly that other people could have noticed. Or the opposite - being so fidgety or restless that you have been moving around a lot more than usual: not at all 9. Thoughts that you would be better off or of hurting yourself in some way: not at all Total score: 0 Depression Screening Interpretation: Negative Depression Screening Done: Yes 91326 - PHQ-9 Billing: Yes Source: Developed by Drs. Helder Bowen, Rosario Azul, Fritz Seo and colleagues, with an educational tyron from [employer]. Thrive Questionnaire Date Thrive assessed: 02/05/24 I am a: Patient What is your living situation today?: I have a steady place to live Within the past 12 months, did the food you bought not last and you didn't have the money to get more?: Never true Within the past 12 months, did you worry whether your food would run out before you got money to buy more?: Never true Do you have trouble paying for medicines?: No Do you have trouble getting transportation to medical appointments?: No Do you have trouble paying your heating and electricity bill?: No Do you have trouble taking care of your child, family member or friend?: No Do you have trouble with day-to-day activities such as bathing, preparing meals, shopping, managing finances, etc.?: No Are you interested in more education?: No Please select the resources that you would like help with: None Currently or been in a relationship where the following occur: No concerns reported and I choose not to answer THRIVE Score: 0 AUDIT C Alcohol Use Questionnaire (AUDIT-C) 1. How often do you have a drink containing alcohol?: Never Total Score: 0 RUFINO-7 AMB Questionnaire RUFINO-7 Date RUFINO - 7 assessed: 02/05/24 Feeling nervous, anxious, or on edge: 0 = Not at all Not being able to stop or control worryin = Not at all Worrying too much about different things: 0 = Not at all Trouble relaxin = Not at all Being so restless that it is hard to sit still: 0 = Not at all Becoming easily annoyed or irritable: 0 = Not at all Feeling afraid as if something awful might happen: 0 = Not at all Total RUFINO-7 score (0-4 normal; 5-9 mild; 10-14 moderate; 15-21 severe): 0 Source: Developed by Drs. Helder Bowen, Rosario Azul, Fritz Seo and colleagues, with an educational tyron from [employer]. RUFINO-7 Assessment Billing RUFINO-7 Assessment Tool: RUFINO-7 Assessment 74296 Review of Systems Const Reports no additional complaints Eyes Denies change in vision ENT Reports no additional complaints Card Denies chest pain, Denies irregular heart rhythm, Denies lightheadedness and Denies dyspnea Resp Denies cough and Denies dyspnea GI Reports no additional complaints Reports no additional complaints Musc Reports no additional complaints Skin/Breast Reports as per HPI Neuro Reports no additional complaints Psych Reports no additional complaints Endo Reports no additional complaints Yonny/Lymph Denies easy bleeding and Denies easy bruising Aller/Immun Reports no additional complaints Physical exam (Primary Care) Vital Signs: Last Vital Signs Pulse 75 02/05/24 13:42 BP 128/70 02/05/24 13:42 Pulse Ox 98 02/05/24 13:42 Oxygen Delivery Method Room Air 02/05/24 13:42 BMI result Body Mass Index 22.2 Tobacco/Smoking Status: Tobacco use Status Tobacco use date assessed 02/05/24 02/05/24 13:45 Patient Tobacco Use Status Never used Tobacco 02/05/24 13:45 e-Cigarette/Vaping Use Never Used 02/05/24 13:45 PHQ-9: PHQ-9 Score PHQ-9: Total score 0 02/05/24 14:25 Depression Screening Interpretation: Negative Thrive Assessment: Date of Thrive Assessment Date Thrive assessed 02/05/24 02/05/24 13:45 Currently or been in a relationship where the following occur: No concerns reported and I choose not to answer Const Other: Alert oriented x3, no acute distress Orientation/consciousness: patient oriented x3 HENMT Head: Yes atraumatic Ears: hearing grossly normal bilaterally, TM's normal bilaterally and EAC's normal General nose exam: Normal external nose present and No nasal discharge present Face and sinus: Yes face symmetric Mouth: Normal oral and palatal mucosa present and moist mucous membranes Eyes General: appearance normal, both eyes and all related structures Neck Neck: Yes full ROM, Yes no lymphadenopathy and Yes supple Thyroid: Thyroid normal Resp Auscultation: clear to auscultation bilaterally Cardio Other: S1-S2 present regular rate and rhythm GI Other: Normal bowel sounds, soft, nontender, no mass palpated General: Yes no CVA tenderness Back/Spine/Pelvis Back: no CVA tenderness and No back tenderness Skin Other: rough slightly rfaised erythematous rash on yehuda border of lip Neuro General: patient oriented x3, gait normal, moves all extremities, Normal light touch and pain sensation, no focal motor deficits and CN's II-XI intact bilaterally Extrem General: Yes normal to inspection, Yes full ROM, Yes capillary refill normal, Yes no joint enlargement, Yes no clubbing, cyanosis or edema and Yes normal gait Psych Appearance: grossly normal and well kempt Mental Status: mental status grossly normal Speech and movement: Normal speech and movement present Affect: normal affect Attitude: cooperative Thought process: Normal thought process present Thought content: Normal thought content present Results Reviewed Results Reviewed: Name: Supriya Gillis Age/Sex: 62/F : 1960 Unit#: [id number] Attend Dr: Martine Lopez MD Re08/19/23 Status: DEP [facility] Disch: SPEC : [id number] YVES: 08/19/23-1201 STATUS: COMP REQ : [id number] RECD: 08/19/23-[address]: Martine Lopez MD COMP: 08/19/23-1418 ENTERED: 08/19/23-[address]: ORDERED: CMP Fast, Lipid Panel, Vitamin D 25-OH Test Result Flag Reference Sodium 141 135-145 mmol/L Potassium 3.8 3.3-5.1 mmol/L CL 108 96-108 mmol/L CO2 25 22-29 mmol/L Gap 12 12-20 BUN 14 9-16 mg/dL Creat 0.70 0.5-1.4 mg/dL EGFR > 60 NOTE: For -[place]at[place] individuals, multiply the result by 1.210. Chronic Kidney Disease: Estimated GFR < 60 mL/min/1.73m2 Severe Kidney Disease: Estimated GFR < 15 mL/min/1.73m2 FBS 86 60-99 mg/dL CA 9.0 # 8.4-10.2 mg/dL Total Bili 0.7 0.0-1.0 mg/dL AST (GOT) 26 5-31 U/L ALT (GPT) 22 0-31 U/L Protein, Total 7.5 6.5-8.0 g/dL Alb 4.2 3.5-5.0 g/dL Triglyceride 152 H <150 mg/dL Desirable Triglyceride: less than 150 mg/dL Borderline High Triglyceride 150-199 mg/dL High Triglyceride: 200-499 mg/dL Very High Triglyceride: greater than or equal to 5OO mg/dL Cholesterol 196 <200 mg/dL Desirable Cholesterol: less than 200 mg/dL Borderline High Cholesterol: 200-239 mg/dL High Cholesterol: greater than 239 mg/dL LDL Calculated 112 H <100 mg/dL Desirable LDL: less than 100 mg/dL Near Optimal/Above Optimal LDL: 110-129 mg/dL Borderline High LDL: 130-159 mg/dL High LDL: 160-189 mg/dL Very High LDL: greater than or equal to 190 mg/dL HDL 54 >40 mg/dL Desirable HDL: greater than 40 mg/dL Note: This HDL assay may give artificially low results in patients with liver disease. Alk Phos 69 39-117 U/L Vit D 25-OH Tot 50.2 >30 ng/mL Health Based Reference Values* < 20 ng/mL Deficient 20-30 ng/mL Insufficient > 30 ng/mL Sufficient Assessment and Plan Assessment & Plan (1) Annual visit for general adult medical examination with abnormal findings: Code(s): Z00.01 - Encounter for general adult medical examination with abnormal findings Plan: Will check appropriate labs. Recommended dental visit every 6 months and regular eye exams, at least every 2 years. Take adequate calcium in diet and vitamin-D 3 at 2000 IU per cap once a day, in addition to weight-bearing exercises to help maintain good muscle tone and weight control. Instructed to do self-breast exam, and continue yearly mammogram,. Up-to-date with her cervical cancer screening and pelvic exam, goes to [facility] last Pap smear was done 2021 been. Reminded to get her yearly flu vaccine and COVID booster, recommended to get shingles vaccination. Up-to-date with her screening colonoscopy, due again next year (2) Microcytic hypochromic anemia: Code(s): D50.9 - Iron deficiency anemia, unspecified Plan: Will check another CBC, iron profile and hemoglobin electrophoresis (3) Osteoporosis: Comment: Left femoral neck and lumbar spine seen on bone density scan 11/25/2015 Code(s): M81.0 - Age-related osteoporosis without current pathological fracture Qualifiers: Osteoporosis type: age-related Presence of current pathological fracture: without current pathological fracture Qualified Code(s): M81.0 - Age-related osteoporosis without current pathological fracture Plan: Continue with alendronate 70 mg once a week, and take adequate calcium from dietary sources, and [id number] vitamin-D 3 at least 2000 units daily. Do regular weight-bearing exercise. Will repeat another bone density scan next year Orders: Orders Hemoglobin Electrophoresis Today D50.9 - Iron deficiency anemia, unspecified Lipid Panel Today D50.9 - Iron deficiency anemia, unspecified, E55.9 - Vitamin D deficiency, unspecified, M81.0 - Age-related osteoporosis without current pathological fracture, R73.01 - Impaired fasting glucose, Z00.01 - Encounter for general adult medical examination with abnormal findings Aspartate Amino Transferase Today D50.9 - Iron deficiency anemia, unspecified, E55.9 - Vitamin D deficiency, unspecified, M81.0 - Age-related osteoporosis without current pathological fracture, R73.01 - Impaired fasting glucose, Z00.01 - Encounter for general adult medical examination with abnormal findings Basic Metabolic Panel Fasting Today D50.9 - Iron deficiency anemia, unspecified, E55.9 - Vitamin D deficiency, unspecified, M81.0 - Age-related osteoporosis without current pathological fracture, R73.01 - Impaired fasting glucose, Z00.01 - Encounter for general adult medical examination with abnormal findings IRON PROFILE Today D50.9 - Iron deficiency anemia, unspecified Alanine Aminotransferase Today D50.9 - Iron deficiency anemia, unspecified, E55.9 - Vitamin D deficiency, unspecified, M81.0 - Age-related osteoporosis without current pathological fracture, R73.01 - Impaired fasting glucose, Z00.01 - Encounter for general adult medical examination with abnormal findings Vitamin D 25-OH Total Today Z78.0 - Asymptomatic menopausal state Coding Level of Care Code Est Pt Prev Care 40-64y(76472) Diagnoses Annual visit for general adult medical examination with abnormal findings Z00.01 Microcytic hypochromic anemia D50.9 Age-related osteoporosis without current pathological fracture M81.0 Osteoporosis type: age-related Presence of current pathological fracture: without current pathological fracture Additional Codes RUFINO-7 Assessment Billing - RUFINO-7 Assessment Tool: RUFINO-7 Assessment [id number] ([id number])
== END 2024-02-05 14:30 | disposition home or self-care (01) ==
PROVIDERS: PCP Internal Medicine; Visit Provider Internal Medicine
DX: Z00.01 Encounter for general adult medical examination with abnormal findings (principal); D50.9 Iron deficiency anemia, unspecified; M81.0 Age-related osteoporosis without current pathological fracture

== ENCOUNTER → 2024-02-05 13:33 | Outpatient (BNVA) | payer OTHER, SELFPAY | PROVIDERS: PCP Internal Medicine; Visit Provider Internal Medicine | DX: Z00.01 Encounter for general adult medical examination with abnormal findings (principal); D50.9 Iron deficiency anemia, unspecified; M81.0 Age-related osteoporosis without current pathological fracture; Z79.899 Other long term (current) drug therapy | CPT/HCPCS: 96127 ==

== ENCOUNTER 2024-08-01 13:26 | Outpatient (REF) | payer OTHER, SELFPAY ==
--- NOTE | ~2024-08-01 | MM_ITS ---
EXAMINATION: DXA BONE DENSITY AXIAL HISTORY: Estrogen deficiency TECHNIQUE: UCROO Dual energy absorptiometry (DEXA) of the lumbar spine, total left hip, and femoral neck was performed. COMPARISON: There are no prior studies for comparison. FINDINGS: The bone mineral density of the lumbar spine is 0.784 with a T-score of -3.3, and a Z-score of -1.4. The bone mineral density of the left total hip is 0.768 with a T-score of -1.9, and a Z-score of -0.5. The bone mineral density of the left femoral neck is 0.662 with a T-score of -2.7, and a Z-score of -1.0. MM/XR DEXA axial skeleton IMPRESSION: Based on bone mineral density, and according to World Health Organization (WHO) criteria, the diagnosis is consistent with osteoporosis. All bone density values are in grams per centimeter squared (g/cm2). Statistically, 68% of repeat scans fall within 1 SD (+/- 0.010 g/cm2 for AP spine L1-L4) and 1 SD (+/- 0.012 g/cm2 for femur total) FRAX is a trademark of the [employer] [place] [facility] Metabolic Bone Disease, a World Health Organization (WHO) Collaborating Center. Electronically signed by: Helder Tilley MD 08/01/2024 03:04 PM [place]
== END 2024-08-01 13:27 | disposition home or self-care (01) ==
LOC: HO.MAMMO 13:26
PROVIDERS: PCP Internal Medicine; Visit Provider Internal Medicine
DX: M81.0 Age-related osteoporosis without current pathological fracture (principal)
CPT/HCPCS: 77080

== ENCOUNTER → 2024-08-01 14:00 | Outpatient (BNV) | payer OTHER, SELFPAY | PROVIDERS: PCP Internal Medicine; Visit Provider Radiology Diagnostic Radiology | DX: E28.39 Other primary ovarian failure (principal) | CPT/HCPCS: 77080 ==

== ENCOUNTER 2024-08-10 06:32 | Outpatient (REF) | payer OTHER, SELFPAY ==
[2024-08-10 12:38] LABS: Alanine Aminotransferase 19 U/L (0-31); Anion Gap 11 (12-20); Aspartate Amino Transferase 28 U/L (5-31); Blood Urea Nitrogen 16 mg/dL (9-16); Calcium 8.7 mg/dL (8.4-10.2); Carbon Dioxide 25 mmol/L (22-29); Chloride 111 mmol/L (96-108); Cholesterol 162 mg/dL (<200); Estimated Glomerular Filt Rate > 60; Glucose Fasting 86 mg/dL (60-99); HDL Cholesterol 57 mg/dL (>40); Iron 85 mcg/dL (30-160); LDL Cholesterol Calculated 93 mg/dL (<100); Percent Iron Saturation 36 % (15-50); Potassium 3.8 mmol/L (3.3-5.1); Sodium 143 mmol/L (135-145); Total Iron Binding Capacity 236 mcg/dL (228-428); Triglycerides 64 mg/dL (<150); Unsaturated Iron Binding 151 ug/dL
[2024-08-10 12:54] LABS: Vitamin D 25-OH Total 39.8 ng/mL (>30)
[2024-08-14 13:48] LABS: Hematocrit 33.8 % (35.0-45.0); Hemoglobin 10.3 g/dL (11.7-15.5); MCH 21.8 pg (27.0-33.0); MCV 71.5 fL (80.0-100.0); RBC 4.73 Million/uL (3.80-5.10); RDW 17.5 % (11.0-15.0)
== END 2024-08-10 06:33 | disposition home or self-care (01) ==
LOC: HO.HMGCLDS 06:32
PROVIDERS: PCP Internal Medicine; Visit Provider Internal Medicine
DX: Z00.01 Encounter for general adult medical examination with abnormal findings (principal); Z78.0 Asymptomatic menopausal state; E55.9 Vitamin D deficiency, unspecified; D50.9 Iron deficiency anemia, unspecified; M81.0 Age-related osteoporosis without current pathological fracture; R73.01 Impaired fasting glucose; Z13.6 Encounter for screening for cardiovascular disorders
CPT/HCPCS: 36415; 80048; 80061; 82306; 83020; 83540; 84450; 84460; 85014; 85018; 85041

== ENCOUNTER 2024-08-16 10:24 | Outpatient (AMB) | payer OTHER, SELFPAY ==
--- NOTE | 2024-08-16 10:22 | A.OFFPC_ITS ---
Intake Visit Reasons: lab and bone density review Allergies Penicillins [PENICILLINS] Allergy (Unknown, Verified 08/17/24 00:01) UNKNOWN citrus Allergy (Mild, Uncoded 08/17/24 00:01) Blister on lips Medication List - Last Reconciled 08/17/24 by Martine Lopez MD alendronate 70 mg PO QWEEK 3 months multivitamin 1 tab PO DAILY Tobacco use date assessed: 08/16/24 Dental Screening Dental Screen Date: 08/16/24 Did you have a dental visit in the last 12 months?: Yes Did you have a dental problem in the last 6 months where you did not have access to dental care?: No Was dental information given to patient?: Patient has dentist HPI lab and bone density review HPI Details 63-year-old lady with history of osteopo rosis in her lumbar spine and left femoral neck, here today for follow-up. She has been on alendronate now for at least a year and repeat bone density scan showed minimal improvement in her bone density in both lumbar spine and hip. Patient however having recurrent heartburn symptoms since starting alendronate. No history of fractures She also complaining of hyperpigmentation and thickening friable toenails in both feet. Would like a referral to be seen by Podiatry. [facility] Medical History Rash on lips Refused influenza vaccine COVID-19 vaccine dose declined Food allergic skin reaction Annual visit for general adult medical examination with abnormal findings Vitamin D deficiency Microcytic hypochromic anemia Beta thalassemia minor Impaired fasting glucose Osteoporosis Surgical History History of colonoscopy History of hemorrhoidectomy History of section Family History Father No problems noted. Mother No problems noted. Brother Liver disease Brother No problems noted. Brother No problems noted. Sister No problems noted. Sister No problems noted. Son No problems noted. Social History Housing: House Patient Tobacco Use Status: Never used Tobacco e-Cigarette/Vaping Use: Never Used Current occupational status: employed Cognitive needs: No Hearing needs: No Vision needs: No Questionnaire PHQ-9 Over the last 2 weeks, how often have you been bothered by any of the following problems? 1. Little interest or pleasure in doing things: not at all 2. Feeling down, depressed, or hopeless: not at all 3. Trouble falling or staying asleep, or sleeping too much: not at all 4. Feeling tired or having little energy: not at all 5. Poor appetite or overeating: not at all 6. Feeling bad about yourself - or that you are a failure or have let yourself or your family down: not at all 7. Trouble concentrating on things, such as reading the newspaper or watching television: not at all 8. Moving or speaking so slowly that other people could have noticed. Or the opposite - being so fidgety or restless that you have been moving around a lot more than usual: not at all 9. Thoughts that you would be better off or of hurting yourself in some way: not at all Total score: 0 Depression Screening Interpretation: Negative Depression Screening Done: Yes 92894 - PHQ-9 Billing: Yes Source: Developed by Drs. Helder Bowen, Rosario Azul, Fritz Seo and colleagues, with an educational tyron from [employer]. Thrive Questionnaire Date Thrive assessed: 08/16/24 I am a: Patient What is your living situation today?: I have a steady place to live Within the past 12 months, did the food you bought not last and you didn't have the money to get more?: Never true Within the past 12 months, did you worry whether your food would run out before you got money to buy more?: Never true Do you have trouble paying for medicines?: No Do you have trouble getting transportation to medical appointments?: No Do you have trouble paying your heating and electricity bill?: No Do you have trouble taking care of your child, family member or friend?: No Do you have trouble with day-to-day activities such as bathing, preparing meals, shopping, managing finances, etc.?: No Are you currently unemployed and looking for a job?: No Are you interested in more education?: No Please select the resources that you would like help with: None THRIVE Score: 0 AUDIT C Alcohol Use Questionnaire (AUDIT-C) 1. How often do you have a drink containing alcohol?: Never 3. How often do you have six or more drinks on one occasion?: Never Total Score: 0 RUFINO-7 AMB Questionnaire RUFINO-7 Date RUFINO - 7 assessed: 08/16/24 Feeling nervous, anxious, or on edge: 0 = Not at all Not being able to stop or control worryin = Not at all Worrying too much about different things: 0 = Not at all Trouble relaxin = Not at all Being so restless that it is hard to sit still: 0 = Not at all Becoming easily annoyed or irritable: 0 = Not at all Feeling afraid as if something awful might happen: 0 = Not at all Total RUFINO-7 score (0-4 normal; 5-9 mild; 10-14 moderate; 15-21 severe): 0 Source: Developed by Drs. Helder Bowen, Rosario Azul, Fritz Seo and colleagues, with an educational tyron from [employer]. Review of Systems Const Reports no additional complaints Eyes Denies change in vision ENT Reports no additional complaints Card Denies chest pain, Denies irregular heart rhythm, Denies lightheadedness and D enies dyspnea Resp Denies cough and Denies dyspnea GI Reports no additional complaints Reports no additional complaints Musc Reports no additional complaints Skin/Breast Reports as per HPI Neuro Reports no additional complaints Psych Reports no additional complaints Endo Reports no additional complaints Aller/Immun Reports no additional complaints Physical exam (Primary Care) Tobacco/Smoking Status: Tobacco use Status Tobacco use date assessed 08/16/24 08/16/24 10:23 Patient Tobacco Use Status Never used Tobacco 08/16/24 10:23 e-Cigarette/Vaping Use Never Used 08/16/24 10:23 PHQ-9: PHQ-9 Score PHQ-9: Total score 0 08/16/24 10:39 Depression Screening Interpretation: Negative Thrive Assessment: Date of Thrive Assessment Date Thrive assessed 08/16/24 08/16/24 10:24 Telehealth Telehealth Telehealth Platform: [facility] Location of provider rendering services: practice address Location of patient: address on file Patient Identification confirmed using: Name, : Yes Telehealth method: video Patient verbally consented to treatment: Yes Patient verbally consented to billing insurance company: Yes Patient informed of any privacy concerns related to visit: Yes Minutes spent on Phone/Video with Pt.: 15 Coding Level of Care Code Tele Est Pt Level 4 (09771) Diagnoses 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 Mccurdy (2) Osteoporosis: Comment: Left femoral neck and lumbar spine seen on bone density scan 11/25/2015 Code(s): M81.0 - Age-related osteoporosis without current pathological fracture Category: Medical Qualifiers: Osteoporosis type: age-related Presence of current pathological fracture: without current pathological fracture Qualified Code(s): M81.0 - Age- related osteoporosis without current pathological fracture Plan: Minimal improvement in bone density on alendronate. Patient having heartburn symptoms since starting the medication, will stop alendronate and endocrine consult ordered Orders: Referrals Endocrinology Referral M81.0 - Age-related osteoporosis without current pathological fracture Podiatry Referral Q84.6 - Other congenital malformations of nails
== END 2024-08-16 11:24 | disposition home or self-care (01) ==
LOC: HO.HMCC 10:24
PROVIDERS: PCP Internal Medicine; Visit Provider Internal Medicine
DX: Q84.6 Other congenital malformations of nails (principal); M81.0 Age-related osteoporosis without current pathological fracture

== ENCOUNTER → 2024-08-16 10:24 | Outpatient (BNVA) | payer OTHER, SELFPAY | PROVIDERS: PCP Internal Medicine; Visit Provider Internal Medicine | DX: M81.0 Age-related osteoporosis without current pathological fracture (principal); Q84.6 Other congenital malformations of nails | CPT/HCPCS: 96127 ==

== ENCOUNTER 2024-09-10 14:45 | Outpatient (REF) | payer OTHER, SELFPAY ==
[2024-09-10 17:35] LABS: Phosphorus 3.4 mg/dL (2.7-4.5)
[2024-09-10 17:53] LABS: Free T4 (Free Thyroxine) 1.01 ng/dL (0.71-1.85); Thyroid Stimulating Hormone 1.16 uIU/mL (0.32-4.0)
[2024-09-11 20:34] LABS: Prot Elec - Albumin 4.4 g/dL (3.8-4.8); Prot Elec - Alpha1 0.2 g/dL (0.2-0.3); Prot Elec - Alpha2 0.5 g/dL (0.5-0.9); Prot Elec - Beta 1 0.4 g/dL (0.4-0.6); Prot Elec - Beta 2 0.3 g/dL (0.2-0.5); Prot Elec - Gamma 1.2 g/dL (0.8-1.7)
== END 2024-09-10 14:46 | disposition home or self-care (01) ==
LOC: HO.LAB 14:45
PROVIDERS: PCP Internal Medicine; Visit Provider Internal Medicine Endocrinology, Diabetes & Metabolism
DX: M81.0 Age-related osteoporosis without current pathological fracture (principal); E28.39 Other primary ovarian failure
CPT/HCPCS: 84100; 84165; 84439; 84443; 86335

== ENCOUNTER 2024-09-10 14:45 | Outpatient (AMB) | payer OTHER, SELFPAY ==
--- NOTE | 2024-09-10 14:50 | MHC.OFFVIS ---
Vital Signs 09/10/24 14:54 Height 4 ft 10.54 in Weight 110 lb 7.225 oz BMI 22.7 BP 116/72 Blood Pressure Location Rt brachial Position Sitting Pulse 84 Pulse Source Pulse Oximeter Pulse Oximetry (%) 96 Oxygen Delivery Method Room Air Intake Visit Reasons: Osteoporosis Intake Note: New patient internally referred by PCP for Osteoporosis, Has been on alendronate for a year, mild improvement in bone density, but patient complaining of heartburn. 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 She was diagnosed with osteoporosis a few years back and briefly started treatment under Dr. [place]. An alendronate regimen was prescribed last year, but compliance was low, with intake for less than six months primarily due to suspected reflux symptoms. She has never experienced fractures in major bones such as the hip, with only an incident related to the wrist following a fall but without fracture. Her dietary intake lacks sufficient calcium despite magnesium and vitamin D supplementation. The patient had menarche at 16 and menopause at 53 years, including periods of irregularity. There?s no family history of osteoporosis. The patient denies chronic use of tobacco or alcohol. She engages in weight-bearing exercises 2?3 times a week. Despite understanding risks associated with bone density reduction, her awareness and management have been limited. Current focus involves assessing and addressing her osteoporosis, ensuring adequate supplementation and understanding the progress and approach regarding increased risk over ascending age, as her bone density was notably low at a T-score of -3.3. Current vitamin D supplementation lacks specifics regarding its adequacy for addressing interconnected health challenges. First diagnosed in few yrs ago . Received treatment in the past with alendronate , from 07/2023 to 07/2024 for 6 mos . Tolerated treatment well without complication. No history of pathologic fracture or ONJ. Has several servings of dietary calcium per day in the form of broccoli, kale, salmons . Not Takes Calcium supplement Takes ? IU of Vitamin D daily. - Alendronate (Fosamax) for osteoporosis, taken intermittently for less than 6 months due to intolerance - No use of calcium supplements - Recent initiation of Vitamin D supplementation, unknown dose - Magnesium supplementation, unknown reason, dose not specified The patient reports dietary intake lacking specific targeted calcium-rich foods. While given a sheet with dietary recommendations such as broccoli, salmon, sardines, and shrimp, she currently does not consume calcium supplements. Her current intake does not appear sufficient to reach 1200 mg/day of calcium as recommended. She is advised on reviewing food labels to ascertain dietary calcium intake and encouraged to consider dietary options over supplements where possible. Denies ever using PPI, anticoagulant, antiepileptic or glucocorticoid medication. 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 UTD on dental cleanings and sees dentist every 6 months. No planned upcoming dental work or extractions. No tbacco use or ETOH abuse DXA dated 08/01/24: EXAMINATION: DXA BONE DENSITY AXIAL HISTORY: Estrogen deficiency TECHNIQUE: REAL SAMURAI Dual energy absorptiometry (DEXA) of the lumbar spine, total left hip, and femoral neck was performed. COMPARISON: There are no prior studies for comparison. FINDINGS: The bone mineral density of the lumbar spine is 0.784 with a T-score of -3.3, and a Z-score of -1.4. The bone mineral density of the left total hip is 0.768 with a T-score of -1.9, and a Z-score of -0.5. The bone mineral density of the left femoral neck is 0.662 with a T-score of -2.7, and a Z-score of -1.0. MM/XR DEXA axial skeleton IMPRESSION: Based on bone mineral density, and according to World Health Organization (WHO) criteria, the diagnosis is consistent with osteoporosis. Labs: [facility] Medical History Rash on lips Refused influenza vaccine COVID-19 vaccine dose declined Food allergic skin reaction Annual visit for general adult medical examination with abnormal findings Vitamin D deficiency Microcytic hypochromic anemia Beta thalassemia minor Impaired fasting glucose Osteoporosis Surgical History History of colonoscopy History of hemorrhoidectomy History of section Family History Father No problems noted. Mother No problems noted. Brother Liver disease Brother No problems noted. Brother No problems noted. Sister No problems noted. Sister No problems noted. Son No problems noted. Social History Housing: House Patient Tobacco Use Status: Never used Tobacco e-Cigarette/Vaping Use: Never Used Current occupational status: employed Cognitive needs: No Hearing needs: No Vision needs: No Physical Exam There are no Cushingoid features. Absence of blue sclera. Absence of kyphosis. Thyroid gland is of nl size and weighs 15 gms. There are no thyroid nodules palpated. Lungs CTA. Heart S1 S2 Reg R/R Abdominal exam benign. Muscle strength 5/5 . Examination of spine reveals absence of tenderness on palpation Assessment & Plan Assessment & Plan (1) Osteoporosis: Comment: Left femoral neck and lumbar spine seen on bone density scan 11/25/2015 Code(s): M81.0 - Age-related osteoporosis without current pathological fracture Category: Medical Qualifiers: Osteoporosis type: age-related Presence of current pathological fracture: without current pathological fracture Qualified Code(s): M81.0 - Age-related osteoporosis without current pathological fracture Plan: This is a 64-year-old white female with a history of osteoporosis with partial secondary workup was treated with the alendronate Plan is to complete the secondary workup by checking a TSH, free T4, phosphorus level, SPEP, urine immunofixation, 24 hour urine for calcium and creatinine. Will ensure 1200 mg of calcium and vitamin D3 2000 IU per day. We will stop alendronate. Considering above secondary workup was negative would strongly consider transitioning to anabolic such as Evenity, Tymlos or Forteo proceeded by anti resorptive agent considering very low bone density and high risk of fracture and minimal improvement on a year of alendronate. 1. Osteoporosis Management of osteoporosis includes increasing dietary calcium to 1200 mg daily and engaging in weight-bearing exercises. Anabolic therapy options were discussed for bone strengthening over antiresorptive treatments, but decisions are contingent on insurance coverage. The patient and I reviewed the osteoporosis management, clearly explaining the T-score implications and risk associated with potential fractures. I elaborated on strategies, including adequate calcium, and vitamin D supplementation alongside weight-bearing exercises. We discussed several treatment options, detailing benefits, associated risks, and procedural logistics. The importance of early intervention was stressed to avoid complications, although identifying insurance support for new medications was recognized as pivotal. Anticipatory guidance was provided regarding urgent symptom awareness, fall prevention in the home, and necessary follow-up in four months post-secondary diagnostic testing. The patient is actively engaged in her treatment decisions, ensuring informed consent to all recommended actions, preferring newer therapeutic options contingent on policy decisions. - Consume 1200 mg of calcium daily, focusing on diet, but use supplements as needed - Continue weight-bearing exercises 2-3 times weekly - Maintain vitamin D supplementation; check dose at home - Return for follow-up in four months after completing prescribed urine and blood tests - Avoid supplements or practice caution when engaging in physical activity to prevent falls - Consult promptly if any sudden pain, fractures, or falls occur T The patient had an opportunity to ask questions regarding treatment plan. The patient expressed understanding and agreement with the above treatment plan. Patient was informed and verbally consented to the use of an ambient scribe for clinic note documentation during this visit. Orders: Orders Free T4 (Free Thyroxine) Today M81.0 - Age-related osteoporosis without current pathological fracture Phosphorus Today M81.0 - Age-related osteoporosis without current pathological fracture Calcium, 24 Hr Ur Today M81.0 - Age-related osteoporosis without current pathological fracture Thyroid Stimulating Hormone Today M81.0 - Age-related osteoporosis without current pathological fracture Protein Electrophoresis, Serum Today M81.0 - Age-related osteoporosis without current pathological fracture Immunofixation, Random Urine Today M81.0 - Age-related osteoporosis without current pathological fracture Creatinine, 24 Hr Group Today M81.0 - Age-related osteoporosis without current pathological fracture Coding Level of Care Code New Pt Level 4 (54171) Diagnoses Age-related osteoporosis without current pathological fracture M81.0 Osteoporosis type: age-related Presence of current pathological fracture: without current pathological fracture
[2024-09-10 14:54] VITALS: BP 116/72; PULSE 84; O2SAT 96; BMI 22.7
== END 2024-09-10 15:43 | disposition home or self-care (01) ==
LOC: HO.ENCR 14:46
PROVIDERS: PCP Internal Medicine; Visit Provider Internal Medicine Endocrinology, Diabetes & Metabolism
DX: M81.0 Age-related osteoporosis without current pathological fracture (principal)
CPT/HCPCS: 99204

== ENCOUNTER 2024-11-01 13:00 | Outpatient (AMB) | payer OTHER, SELFPAY ==
--- OUTSIDE RECORDS SUMMARY | 2024-11-01 13:25 | XMS_ITS | Clinical Summary ---
Author Organization [address] [place] [address] Address [address] [place] [address] Phone Care Team Providers Care Reprographics Associate Name Role Phone Unavailable Primary Care Provider Unavailabl e Social History Tobacco Use Types Packs/Day Years Used Date Smoking Tobacco: Never Assessed Comments Unknown Sex and Gender Information Value Date Recorded Sex Assigned at Not on file Legal Sex Female 7:36 AM EST Gender Identity Not on file Sexual Orientation Not on file Plan of Treatment Upcoming Encounters Date Type Department Care Team ([facility] Contact Info) Description 12/10/2024 2:00 PM EDT Consult Orthopedic Surgery [place] [id number] [id number] Brian Mccurdy, DPM [address] [address] Health Maintenance Due Date Last Done Comments Breast Cancer Screening 1961 DTaP,Tdap,and Td Vaccines (1 - Tdap) 1980 Cervical Cancer Screening: P ap Smear 1982 Pneumococcal Vaccine: 50+ Ye ars (1 of 1 - PCV) 09/04/2011 Zoster Vaccines (1 of 2) 09/04/2011 COVID-19 Vaccine ( - 2023-2 5 season) 2024 Colorectal Cancer Screening: Colonoscopy 09/21/2024 Depression Screening 09/21/2024 HIV Screening 09/21/2024 Hepatitis C Screening 09/21/2024 Social Influencers of Health Screening 09/21/2024 Influenza Vaccine (Season Ended) 2025 RSV Immunization Adult Patie nts (1 - 1-dose 75+ series) 2036 HIB Vaccines Aged Out No longer eligi ble based on patient's age to complete this topic HPV Vaccines Aged Out No longer eligi ble based on patient's age to complete this topic Hepatitis A Vaccines Aged Out No long er eligible based on patient's age to complete this topic Hepatitis B Vaccines Aged Out No long er eligible based on patient's age to complete this topic IPV Vaccines Aged Out No longer eligi ble based on patient's age to complete this topic MMR Vaccines Aged Out No longer eligi ble based on patient's age to complete this topic Meningococcal ACWY Vaccine Aged Out N o longer eligible based on patient's age to complete this topic Meningococcal B Vaccine Aged Out No l onger eligible based on patient's age to complete this topic Pneumococcal Vaccine: Pediat rics (0 to 5 Years) and At-Risk Patients (6 to 64 Years) Aged Out No longer eligible b ased on patient's age to complete this topic RSV Immunization Patients Un wagner 20 months Aged Out No longer eligible b ased on patient's age to complete this topic Varicella Vaccines Aged Out No longer eligible based on patient's age to complete this topic Insurance [facility]
--- NOTE | 2024-11-01 13:41 | AM.OFFWIN_ITS ---
Intake Vital Signs 11/01/24 13:44 Weight 108 lb BP 120/80 Blood Pressure Location Lt brachial Position Sitting Pulse 63 Pulse Source Pulse Oximeter Pulse Oximetry (%) 98 Oxygen Delivery Method Room Air Intake Visit Reasons: EP Red eye (LT) Intake Note: Patient here for left eye redness that started around 11:30 Patient Tobacco Use Status: Never used Tobacco Allergies Penicillins [PENICILLINS] Allergy (Unknown, Verified 11/01/24 13:47) UNKNOWN citrus Allergy (Mild, Uncoded 11/01/24 13:47) Blister on lips Do you need a note to return to daycare/school/sports/work: No HPI HPI Comments History of Present Illness Details History of Present Illness - The patient is a 64-year-old female pr esenting with sudden eye redness in her left eye. - The patient noticed the redness around 11:00 to 11:30 AM while at work, without any preceding symptoms such as sneezing or coughing over the last day. - There was no associated pain, vision c hanges, or light sensitivity. - The patient has no history of hyperten laura and her blood pressure was recorded as 120/80 mmHg. Physical Exam General: Cooperative, healthy appearing, comfortable, no acute distress and well developed Orientation: Patient oriented x3 Limitations: No limitations Head: Normal to inspection Ears: Hearing grossly normal bilaterally Nose: Normal External nose present Face and sinus: Normal facial exam Eyes: medial subconjunctival hemorrhage left eye; PERRLA, EOM intact, otherwise normal appearance bilaterally Neck: Normal visual inspection and Yes full ROM Respiratory: Normal respiratory effort and able to speak in complete sentences. Skin: No rashes or lesions noted Neuro: Patient oriented x3 Extremities: Normal to inspection [facility] Medical History Rash on lips Refused influenza vaccine COVID-19 vaccine dose declined Food allergic skin reaction Annual visit for general adult medical examination with abnormal findings Vitamin D deficiency Microcytic hypochromic anemia Beta thalassemia minor Impaired fasting glucose Osteoporosis Surgical History History of colonoscopy History of hemorrhoidectomy History of section Family History Father No problems noted. Mother No problems noted. Brother Liver disease Brother No problems noted. Brother No problems noted. Sister No problems noted. Sister No problems noted. Son No problems noted. Social History Housing: House Patient Tobacco Use Status: Never used Tobacco e-Cigarette/Vaping Use: Never Used Current occupational status: employed Cognitive needs: No Hearing needs: No Vision needs: No Review of Systems Const All systems reviewed & are unremarkable except as noted in HPI and below Physical Exam Vital Signs: Last Vital Signs Pulse 63 11/01/24 13:44 BP 120/80 11/01/24 13:44 Pulse Ox 98 11/01/24 13:44 Oxygen Delivery Method Room Air 11/01/24 13:44 Assessment & Plan Assessment & Plan (1) Subconjunctival hemorrhage of left eye: Code(s): H11.32 - Conjunctival hemorrhage, left eye Plan: Plan - Monitor for any changes in vision or onset of pain, and consult an coroner's juror if these occur. - No specific treatment required for the subconjunctival hemorrhage, as it is expected to resolve without intervention over the coming days and weeks. Patient was informed and verbally consented to the use of an ambient scribe for clinic note documentation during this visit. Coding Level of Care Code Est Pt Level 3 (79026) Diagnoses Subconjunctival hemorrhage of left eye H11.32
[2024-11-01 13:44] VITALS: BP 120/80; PULSE 63; O2SAT 98
== END 2024-11-01 14:08 | disposition home or self-care (01) ==
PROVIDERS: PCP Internal Medicine; Visit Provider Physician Assistant
DX: H11.32 Conjunctival hemorrhage, left eye (principal)

== ENCOUNTER → 2024-11-01 13:00 | Outpatient (BNVA) | payer OTHER, SELFPAY | PROVIDERS: PCP Internal Medicine; Visit Provider Physician Assistant ==

== ENCOUNTER 2025-02-26 13:48 | Outpatient (AMB) | payer OTHER, SELFPAY ==
[2025-02-26 14:00] VITALS: BP 132/80; PULSE 76; RESP 15; TEMP 36.7; O2SAT 98; BMI 22.8
--- NOTE | 2025-02-26 14:00 | A.OFFPC_ITS ---
Vital Signs 02/26/25 14:00 Height 4 ft 10.5 in Weight 111 lb BMI 22.8 BP 132/80 Blood Pressure Location Lt brachial Position Sitting Respiration 15 Pulse 76 Pulse Source Pulse Oximeter Temp 98.1 F Temp Source Oral Pulse Oximetry (%) 98 Oxygen Delivery Method Room Air Intake Visit Reasons: Annual physical Intake Note: Pt is here today for her PE: Last mammogram 07/13/23, colonoscopy 08/04/14, papsmear 07/01/21 Allergies Penicillins (PENICILLINS) Allergy (Unknown, Verified 02/26/25 14:01) UNKNOWN citrus Allergy (Mild, Uncoded 02/26/25 14:01) Blister on lips Medication List - Last Reconciled 02/26/25 by Martine Lopez MD multivitamin 1 tab PO DAILY Tobacco use date assessed: 02/26/25 Dental Screening Dental Screen Date: 02/26/25 Did you have a dental visit in the last 12 months?: Yes Did you have a dental problem in the last 6 months where you did not have access to dental care?: No Was dental information given to patient?: Patient has dentist HPI Annual physical HPI Details The patient is a 64-year-old female with a history of beta thalassemia minor, impaired fasting glucose presenting for her physical exam. Due for her breast cancer screening. Up-to-date with her cervical cancer screening, last done in 2021 with benign findings. She is due this year for her colon cancer screening, with last colonoscopy done in 2014 which came back with benign findings. Patient however wants to see if she can just get Cologuard testing instead of colonoscopy screening. Bone density scan done earlier this year showed osteoporosis in left femoral neck. No history of fractures. She has been seen by Dr. Echavarria who discussed treatment options available and encouraged to do regular weight-bearing exercise, take adequate calcium 1200 mg daily and vitamin D3 at least 2000 units daily. She has an appointment to see him back for follow-up this month after tests are done. [facility] Medical History (Updated 03/03/25 @ 01:53 by Martine Lopez MD) Rash on lips Refused influenza vaccine COVID-19 vaccine dose declined Food allergic skin reaction Annual visit for general adult medical examination with abnormal findings Vitamin D deficiency Microcytic hypochromic anemia Beta thalassemia minor Impaired fasting glucose Osteoporosis Surgical History History of colonoscopy History of hemorrhoidectomy History of section Family History Father No problems noted. Mother No problems noted. Brother Liver disease Brother No problems noted. Brother No problems noted. Sister No problems noted. Sister No problems noted. Son No problems noted. Social History Housing: House Patient Tobacco Use Status: Never used Tobacco e-Cigarette/Vaping Use: Never Used Current occupational status: employed Cognitive needs: No Hearing needs: No Vision needs: No Questionnaire PHQ-9 Over the last 2 weeks, how often have you been bothered by any of the following problems? 1. Little interest or pleasure in doing things: not at all 2. Feeling down, depressed, or hopeless: not at all 3. Trouble falling or staying asleep, or sleeping too much: several days 4. Feeling tired or having little energy: not at all 5. Poor appetite or overeating: not at all 6. Feeling bad about yourself - or that you are a failure or have let yourself or your family down: not at all 7. Trouble concentrating on things, such as reading the newspaper or watching television: not at all 8. Moving or speaking so slowly that other people could have noticed. Or the opposite - being so fidgety or restless that you have been moving around a lot more than usual: not at all 9. Thoughts that you would be better off or of hurting yourself in some way: not at all Total score: 1 Depression Screening Interpretation: Negative Depression Screening Done: Yes Source: Developed by Drs. Helder Bowen, Rosario Azul, Fritz Seo and colleagues, with an educational tyron from [employer]. Thrive Questionnaire Date Thrive assessed: 02/26/25 I am a: Patient What is your living situation today?: I have a steady place to live Within the past 12 months, did the food you bought not last and you didn't have the money to get more?: Never true Within the past 12 months, did you worry whether your food would run out before you got money to buy more?: Never true Do you have trouble paying for medicines?: No Do you have trouble getting transportation to medical appointments?: No Do you have trouble paying your heating and electricity bill?: No Do you have trouble taking care of your child, family member or friend?: No Do you have trouble with day-to-day activities such as bathing, preparing meals, shopping, managing finances, etc.?: No Are you currently unemployed and looking for a job?: No Are you interested in more education?: No Please select the resources that you would like help with: None Currently or been in a relationship where the following occur: I choose not to answer THRIVE Score: 0 AUDIT C Alcohol Use Questionnaire (AUDIT-C) 1. How often do you have a drink containing alcohol?: Never Total Score: 0 RUFINO-7 AMB Questionnaire RUFINO-7 Date RUFINO - 7 assessed: 08/16/24 Feeling nervous, anxious, or on edge: 0 = Not at all Not being able to stop or control worryin = Not at all Worrying too much about different things: 0 = Not at all Trouble relaxin = Not at all Being so restless that it is hard to sit still: 0 = Not at all Becoming easily annoyed or irritable: 0 = Not at all Feeling afraid as if something awful might happen: 0 = Not at all Total RUFINO-7 score (0-4 normal; 5-9 mild; 10-14 moderate; 15-21 severe): 0 Source: Developed by Drs. Helder Bowen, Rosario Azul, Fritz Seo and colleagues, with an educational tyron from [employer]. Review of Systems Const Reports no additional complaints Eyes Denies change in vision ENT Reports no additional complaints Card Denies chest pain, Denies irregular heart rhythm, Denies lightheadedness and Denies dyspnea Resp Denies cough and Denies dyspnea GI Denies abdominal pain, Denies melena, Denies hematochezia, Denies change in bowel habits and Reports heartburn (Takes [id number] antacids as needed) Reports no additional complaints Musc Reports no additional complaints Skin/Breast Reports as per HPI Neuro Reports no additional complaints Psych Reports no additional complaints Endo Reports no additional complaints Yonny/Lymph Reports no additional complaints Aller/Immun Reports no additional complaints Physical exam (Primary Care) Vital Signs: Last Vital Signs Temp 98.1 F 02/26/25 14:00 Pulse 76 02/26/25 14:00 Resp 15 02/26/25 14:00 BP 132/80 02/26/25 14:00 Pulse Ox 98 02/26/25 14:00 Oxygen Delivery Method Room Air 02/26/25 14:00 BMI result Body Mass Index 22.8 Tobacco/Smoking Status: Tobacco use Status Tobacco use date assessed 02/26/25 02/26/25 14:03 Patient Tobacco Use Status Never used Tobacco 02/26/25 14:03 e-Cigarette/Vaping Use Never Used 02/26/25 14:03 PHQ-9: PHQ-9 Score PHQ-9: Total score 1 02/26/25 15:48 Depression Screening Interpretation: Negative Thrive Assessment: Date of Thrive Assessment Date Thrive assessed 02/26/25 02/26/25 14:03 Currently or been in a relationship where the following occur: I choose not to answer Const Other: Alert oriented x3, no acute distress HENMT Head: Yes atraumatic Ears: TM's normal bilaterally and EAC's normal General nose exam: Normal external nose present and No nasal discharge present Face and sinus: Yes face symmetric Mouth: Normal oral and palatal mucosa present and moist mucous membranes Eyes General: appearance normal, both eyes and all related structures Neck Neck: Yes full ROM, Yes no lymphadenopathy and Yes supple Thyroid: Thyroid normal Chest Chest palpation & inspection: normal inspection of the chest Breast/axilla palpation: normal palpation of the breasts Resp Auscultation: clear to auscultation bilaterally Cardio Other: S1-S2 present regular rate and rhythm GI Other: Normal bowel sounds, soft, nontender, no mass palpated General: Yes no CVA tenderness Back/Spine/Pelvis Back: no CVA tenderness and No back tenderness Skin Other: rough slightly rfaised erythematous rash on yehuda border of lip Neuro General: gait normal, moves all extremities, Normal light touch and pain sensation, no focal motor deficits and CN's II-XI intact bilaterally Extrem General: Yes normal to inspection, Yes full ROM, Yes capillary refill normal, Yes no joint enlargement, Yes no clubbing, cyanosis or edema and Yes normal gait Psych Appearance: grossly normal and well kempt Mental Status: mental status grossly normal Speech and movement: Normal speech and movement present Affect: normal affect Coding Level of Care Code Est Pt Prev Care 40-64y(80828) Diagnoses Annual visit for general adult medical examination with abnormal findings Z00.01 Impaired fasting glucose R73.01 Age-related osteoporosis without current pathological fracture M81.0 Osteoporosis type: age-related Presence of current pathological fracture: without current pathological fracture Microcytic hypochromic anemia D50.9 Beta thalassemia minor D56.3 Assessment & Plan Assessment & Plan (1) Annual visit for general adult medical examination with abnormal findings: Code(s): Z00.01 - Encounter for general adult medical examination with abnormal findings Category: Medical Plan: Will check appropriate labs. Recommended dental visit every 6 months and regular eye exams, at least every 2 years. Take adequate calcium in diet and vitamin-D 3 at 2000 IU per cap once a day, in addition to weight-bearing exercises to help maintain good muscle tone and weight control. Instructed to do self-breast exam, and continue to get yearly mammogram. Cologuard testing ordered. Declined flu vaccine and COVID booster (2) Impaired fasting glucose: Code(s): R73.01 - Impaired fasting glucose Category: Medical Plan: Your previous fasting blood sugars were elevated above 100 mg/dL. Impaired glucose metabolism increases the risk for developing diabetes mellitus type 2, as well as heart attack and stroke later on. Lifestyle changes that promotes weight loss, healthy eating habits, and regular exercise are important, and can prevent the progression to diabetes (3) Osteoporosis: Comment: Left femoral neck and lumbar spine seen on bone density scan 11/25/2015 and 07/03/2023, sees Dr. Echavarria, has already tried alendronate but only for six- months on and off as she has been getting heartburn symptoms Code(s): M81.0 - Age-related osteoporosis without current pathological fracture Category: Medical Qualifiers: Osteoporosis type: age-related Presence of current pathological fracture: without current pathological fracture Qualified Code(s): M81.0 - Age- related osteoporosis without current pathological fracture Plan: Stressed importance of doing regular weight-bearing exercise, calcium from dietary sources at least 1200 mg daily and vitamin D3 at least 2000 units daily. Currently being seen by Dr. Echavarria with whom she has an appointment later this month to discuss treatment options (4) Microcytic hypochromic anemia: Code(s): D50.9 - Iron deficiency anemia, unspecified Category: Medical Plan: Patient has beta thalassemia minor (5) Beta thalassemia minor: Code(s): D56.3 - Thalassemia minor Category: Medical Plan: Currently asymptomatic Orders: Referrals Cologuard Test R73.01 - Impaired fasting glucose, Z00.01 - Encounter for general adult medical examination with abnormal findings, Z12.11 - Encounter for screening for malignant neoplasm of colon, Z12.12 - Encounter for screening for malignant neoplasm of rectum
== END 2025-02-26 14:46 | disposition home or self-care (01) ==
LOC: HO.HMCC 13:49
PROVIDERS: PCP Internal Medicine; Visit Provider Internal Medicine
DX: Z00.01 Encounter for general adult medical examination with abnormal findings (principal); R73.01 Impaired fasting glucose; M81.0 Age-related osteoporosis without current pathological fracture; D50.9 Iron deficiency anemia, unspecified; D56.3 Thalassemia minor

== ENCOUNTER 2025-03-25 07:09 | Outpatient (AMB) | payer OTHER, SELFPAY ==
[2025-03-25 07:11] VITALS: BP 132/84; PULSE 78; TEMP 36.6; O2SAT 98; BMI 23.2
--- NOTE | 2025-03-25 07:11 | MHC.OFFWIV ---
Intake Vital Signs 03/25/25 07:11 Height 4 ft 10.5 in Weight 113 lb BMI 23.2 BP 132/84 Blood Pressure Location Lt brachial Position Sitting Pulse 78 Pulse Source Pulse Oximeter Temp 97.8 F Temp Source Oral Pulse Oximetry (%) 98 Oxygen Delivery Method Room Air Intake Visit Reasons: EP-body hives Intake Note: Patient presents with c/o hives all over body related to dental procedure involving Novocaine last week - went to on Monday morning and was given 5 day course of prednisone. Patient Tobacco Use Status: Never used Tobacco Allergies Penicillins (PENICILLINS) Allergy (Unknown, Verified 03/25/25 07:13) UNKNOWN citrus Allergy (Mild, Uncoded 03/25/25 07:13) Blister on lips Do you need a note to return to daycare/school/sports/work: Yes HPI HPI Comments History of Present Illness Details History - The patient is a 64-year-old female presenting with an allergic reaction characterized by pruritus and hives. - The allergic reaction began following a dental procedure where Novocaine was administered. - The patient visited urgent care and was prescribed prednisone, which provided limited relief. - The patient reports no prior history of similar reactions and this is the first occurrence of such symptoms. - The patient was given an antibiotic prior to the procedure and she is not sure if it was from the antibiotic or novocaine. - She has no SOB or wheezing, CP, nausea, vomiting, dizziness, Physical Exam General: Cooperative, healthy appearing, comfortable, no acute distress and well developed Orientation: Patient oriented x3 Limitations: No limitations Mouth: normal, moist oral mucosa Neck: Normal visual inspection and Yes full ROM Respiratory: Normal respiratory effort and able to speak in complete sentences. Clear to auscultation bilaterally. No w/r/r noted. Cardiovascular: RRR, no m/r/g noted. Normal S1 and S2 Skin: Diffuse maculopapular raised fine erythematous non-tender blanchable rash noted on her chest, breast, back, arms. Patient was informed and verbally consented to the use of an ambient scribe for clinic note documentation during this visit [facility] Medical History (Updated 03/03/25 @ 01:53 by Martine Lopez MD) Rash on lips Refused influenza vaccine COVID-19 vaccine dose declined Food allergic skin reaction Annual visit for general adult medical examination with abnormal findings Vitamin D deficiency Microcytic hypochromic anemia Beta thalassemia minor Impaired fasting glucose Osteoporosis Surgical History History of colonoscopy History of hemorrhoidectomy History of section Family History Father No problems noted. Mother No problems noted. Brother Liver disease Brother No problems noted. Brother No problems noted. Sister No problems noted. Sister No problems noted. Son No problems noted. Social History Housing: House Patient Tobacco Use Status: Never used Tobacco e-Cigarette/Vaping Use: Never Used Current occupational status: employed Cognitive needs: No Hearing needs: No Vision needs: No Review of Systems Const All systems reviewed & are unremarkable except as noted in HPI and below Physical Exam Vital Signs: Last Vital Signs Temp 97.8 F 03/25/25 07:11 Pulse 78 03/25/25 07:11 BP 132/84 03/25/25 07:11 Pulse Ox 98 03/25/25 07:11 Oxygen Delivery Method Room Air 03/25/25 07:11 BMI result Body Mass Index 23.2 Assessment & Plan Assessment & Plan (1) Rash: Code(s): R21 - Rash and other nonspecific skin eruption Plan Most likely allergic reaction after dental work Plan - Prescribe a prednisone taper to manage the allergic reaction and provide symptomatic relief. - Prescribe additional medications to alleviate pruritus and hives. - Advise the patient to contact her dentist to confirm the antibiotic used prior to the procedure to prevent future allergic reactions. - Instruct the patient to update her allergy list with the new information for future medical reference. Medications: New prednisone Day 1&2 take 4 tablets, day 3&4 take 3 tablets, day 5&6 take 2 tablets, days 7-9 take 1 tablet. 10 mg PO DIRECTED 21 ea 0RF famotidine (Pepcid) 20 mg PO DAILY 30 tabs 0RF cetirizine 10 mg PO DAILY PRN 30 tabs 0RF allergy symptoms Coding Level of Care Code Est Pt Level 3 (97092) Diagnoses Rash R21
--- OUTSIDE RECORDS SUMMARY | 2025-03-25 07:12 | XMS_ITS | Clinical Summary ---
Author Organization [facility] Address [address] [place] [address] Phone Care Team Providers Care Prop Worker Name Role Phone Martine Lopez MD Primary Care Provider Allergies Active Allergy Reactions Criticality Noted Date Comments Penicillins 12/10/2024 Medications alendronate (FOSAMAX) 70 mg tablet PLEASE SEE ATTACHED FOR DETAILED DIRECTIONS 02/07/20 24 Active montelukast (SINGULAIR) 10 mg tablet Take 1 tablet (10 mg total) by mouth 1 (one) time each day. 02/28/20 24 Active betamethasone dipropionate (DIPROSONE) 0.05 % creamIndications :Dermatitis Apply topically 2 (two) times a day if needed for irritation or rash. 15 g 03/13/20 25 Active terbinafine (LamISIL) 250 mg tablet Take 1 tablet (250 mg total) by mouth 1 (one) time each day. 30 tablet 2 12/11/19 25 025 betamethasone dipropionate (DIPROSONE) 0.05 % creamIndications :Dermatitis Apply topically 2 (two) times a day if needed for irritation or rash. 15 g 03/13/20 25 025 Discontinued Active Problems No known active problems Encounters Date Type Department Care Team Description 03/13/2025 5:45 PM EDT Office Visit Walk[facility]In [facility] - [address] [phone] Carlos Ellington NP Dermatitis (Primary Dx) 02/04/2025 5:15 PM EDT Office Visit Walk-In [address] [phone] Carlos Ellington NP Upper respiratory symptom (Primary Dx); Acute nasopharyngitis 01/22/2025 2:30 PM EDT Office Visit [facility] [address] [phone] Brian Mccurdy DPM Dermatophytosis of nail (Primary Dx); Tinea pedis of both feet from Last 3 Months Social History Tobacco Use Types Packs/Day Years Used Date Smoking Tobacco: Never Assessed Comments Unknown Sex and Gender Information Value Date Recorded Sex Assigned at Not on file Legal Sex Female 7:36 AM EST Gender Identity Not on file Sexual Orientation Not on file Obstetrics History Last Filed Vital Signs Vital Sign Reading Time Taken Comments Blood Pressure 148/88 03/13/2025 5:57 PM EDT Pulse 84 03/13/2025 5:57 PM EDT Temperature 36.2 C (97.2 F) 03/13/2025 5:57 PM EDT Respiratory Rate - - Oxygen Saturation 98% 03/13/2025 5:57 PM EDT Inhaled Oxygen Concentration - - Weight 49.4 kg (109 lb) 12/10/2024 2:01 PM EDT Height 149.9 cm (4' 11 ) 12/10/2024 2:01 PM EDT Body Mass Index 22.02 12/10/2024 2:01 PM EDT Plan of Treatment Upcoming Encounters Date Type Department Care Team (Late st Contact Info) Description 05/26/2025 3:15 PM EST Office Visit Orthopedic [place] [id number] [phone] Brian Mccurdy DPM [address] [place] [phone] Health Maintenance Due Date Last Done Comments Breast Cancer Screening 1961 Colorectal Cancer Screening: Colonoscopy 1961 DTaP,Tdap,and Td Vaccines (1 - Tdap) 1980 Cervical Cancer Screening: P ap Smear 1982 Pneumococcal Vaccine: 50+ Ye ars (1 of 1 - PCV) 09/04/2011 Zoster Vaccines (1 of 2) 09/04/2011 Depression Screening 05/22/2024 HIV Screening 09/21/2024 Hepatitis C Screening 09/21/2024 Social Influencers of Health Screening 09/21/2024 COVID-19 Vaccine (2023-2 5 season) 2025 Influenza Vaccine (#1) 2025 RSV Immunization Adult Patie nts (1 [...] on patient's age to complete this topic Procedures Procedure Name Priority Date/Time Associated Diagnosis Comments POC RAPID STREP A Routine 02/04/2025 5:3 3 PM EDT Upper respiratory symptom POC RAPID [id number], MOLECULAR Routine 02/04/2025 5:33 PM EDT Upper respiratory symptom HEPATIC FUNCTION PANEL Routine 01/22/2025 3:08 PM EDT Dermatophytosis of nail from Last 3 Months Results * Poc Rapid [id number], MOLECULAR (02/04/2025 5:33 PM EDT) COVID-19/SARS- COV-2 Rapid POC Negative Negative Swab Nasopharyngeal structure / Unknown 02/04/2025 5:33 PM EDT Carlos Ellington NP POINT OF CARE TEST ENTER/EDIT ORDERABLES Final Result * POC rapid strep A manually resulted (02/04/2025 5:33 PM EDT) [facility] Rapid Strep A Screen POC Negative Negative Swab Structure of anterior region of neck / Unknown 02/04/2025 5:33 PM EDT Carlos Ellington NP POINT OF CARE TEST ENTER/EDIT ORDERABLES Final Result * Hepatic function panel (01/22/2025 3:08 PM EDT) [facility] Total Protein 7.2 6.0 - 8.0 g/dL LAB [facility] Albumin 4.0 3.2 - 5.0 g/dL LAB CHEMISTRY METHOD 01/22/2025 4:43 PM [facility] Total Bilirubin 0.5 0.0 - 1.4 mg/dL LAB CHEMISTRY METHOD 01/22/2025 4:43 PM [facility] Bilirubin, Direct 0.1 0.0 - 0.3 mg/dL LAB CHEMISTRY METHOD 01/22/2025 4:43 PM [facility] Bilirubin, Indirect 0.4 0.0 - 1.1 mg/dL LAB CHEMISTRY METHOD 01/22/2025 4:43 PM [facility] ALT (SGPT) 25 10 - 60 unit/L LAB CHEMISTRY METHOD 01/22/2025 4:43 PM [facility] AST (SGOT) 21 10 - 42 unit/L LAB CHEMISTRY METHOD 01/22/2025 4:43 PM [facility] Alkaline Phosphatase 56 42 - 121 unit/L LAB CHEMISTRY METHOD 01/22/2025 4:43 PM [facility] Blood Venous blood specimen / Unknown Venipuncture / Unknown 01/22/2025 3:08 PM EDT 01/22/2025 3:54 PM EDT us Brian Mccurdy DPM LAB BLOOD ORDERABLES Rachell farfan Result [facility] [address] [place] [address], from Last 3 Months Insurance [facility] [address] [place] [address] Care Teams Prop Worker Relationship Specialty Start Date End Date Martine Lopez MD [address] [place] [address] PCP - General Internal Medicine 12/10/24
== END 2025-03-25 08:48 | disposition home or self-care (01) ==
PROVIDERS: PCP Internal Medicine; Visit Provider Physician Assistant Medical
DX: R21 Rash and other nonspecific skin eruption (principal)